=== PATIENT | female | born 1950 | race Caucasian/White ===

== ENCOUNTER → 2018-04-21 11:14 | Outpatient (CLI) | payer OTHER, SELFPAY ==
[2018-04-21 09:18] VITALS: BMI 45.2
--- NOTE | 2018-04-21 11:17 | RAD_ITS ---
HISTORY: left knee pain, recent fallreplacement surgery in 2011 COMPARISON: 11/11/2016 FINDINGS: XR Knee 3 Views: The previously seen fracture of the medial femoral condyle show solid union. No new or acute fracture. Left total knee prosthesis in place which appears in good position. No prosthetic loosening. Small suprapatellar effusion, unchanged. A fabella is present. Atherosclerotic calcifications. RAD/Knee 3 Views IMPRESSION: 1. The previously seen distal left femoral fracture shows solid union. 2. Left total knee prosthesis in place without complication. 3. Small joint effusion, unchanged. at 0547 Reported and signed by: Zeeshan Lucia MD Electronically Signed: Zeeshan Lucia, at 5:45 EST Tel , Service support ,
[2018-04-21 12:17] LABS: Hemoglobin A1c 9.4 % (4.2-6.3)
--- OUTSIDE RECORDS SUMMARY | 2018-06-16 19:49 | XMS RPT_ITS ---
:1950 Author Organization OHIP Care Team Providers Name Role Phone hPoenix Ramoslas Attending Unavailable Brown, Enrique Referring Unavailable Brown, Enrique Attending Unavailable Brown, Enrique Referring Unavailable Brown, Enrique Attending Unavailable Brown, Enrique Referring Unavailable Brown, Enrique Attending Unavailable Brown, Enrique Referring Unavailable Brown, Enrique Primary Care Unavailable PROBLEMS PROBLEMS DATE TYPE CONDITION / CODE ATTENDING STATUS SOURCE 04/21/2018 Unknown M25.569 - Pain in Brown, Enrique Active [place] unspecified knee / Community M25.569(ICD-10) Hospital Repository 04/21/2018 Unknown E11.9 - Type 2 Brown, Enrique Active [place] diabetes mellitus Community without Hospital complications / Repository E11.9(ICD-10) 03/23/2018 Unknown Z23 - Encounter for Brown, Enrique Active [place] immunization / Community Z23(ICD-10) Hospital Repository PROCEDURES PROCEDURES No Procedure Records FoundRESULTS RESULTS INTERNAL MEDICINE Observed: 04/22/2018 Status: F Source: [place] OFFICE VISIT 1:35 PM [facility] [address] [place] [address] [place] [address] OFFICE VISIT Date of Service: 03/23/18 MR#: [id number] Acct: [id number] Name: ANIBAL SAEZ Rep #: [id number] : 1950 Provider: Enrique Ramos DO Age/Sex: 68/F Location: [facility] Status: Signed Intake Intake Visit Reasons: PNEUMONIA SHOT Chief Complaint: For Pneumovax 23 Allergies No Known Allergies Allergy (Verified 03/23/18 09:53) Medications Aspirin [Aspirin, Baby] 81 mg PO QHS 09/07/15 [History Confirmed 03/23/18] Losartan Potassium [Cozaar] 100 mg PO QHS 09/07/15 [History Confirmed 03/23/18] Simvastatin [Zocor] 40 mg PO QHS 09/07/15 [History Confirmed 03/23/18] alogliptin 12.5 mg tablet 25 mg PO DAILY #30 tab 03/16/18 [Rx Confirmed 03/23/18] alprazolam 0.25 mg tablet 0.25 mg PO BID PRN 03/16/18 [History Confirmed 03/23/18] hydrocodone 7.5 mg-acetaminophen 325 mg tablet 1 tab PO BID PRN tab 03/16/18 [History Confirmed 03/23/18] levothyroxine 88 mcg capsule 88 mcg PO DAILY 03/16/18 [History Confirmed 03/23/18] metformin 500 mg tablet 500 mg PO BID 03/16/18 [History Confirmed 03/23/18] ranitidine 150 mg tablet 150 mg PO BID PRN tab 03/16/18 [History Confirmed 03/23/18] exenatide ER 2 mg/0.85 mL subcutaneous auto-injector 2 mg SC Q7D #3.4 ml 03/23/18 [Rx Confirmed 03/23/18] PFSH Medical History Goiter (Acute) History of gout (Acute) Chronic back pain (Chronic) Arthritis (Chronic) Seasonal allergies (Chronic) Diabetes (Chronic) Neuropathy (Chronic) History of kidney stones (Acute) GERD (gastroesophageal reflux disease) (Chronic) Hyperlipemia (Chronic) Hypertension (Chronic) Hypothyroidism (Chronic) Surgical History History of bilateral breast reduction surgery (Acute) History of hip replacement (Acute) History of hysterectomy (Acute) History of orthopedic surgery (Acute) History of partial thyroidectomy (Acute) History of tonsillectomy (Acute) Family History Father Alcoholism Mother Arthritis Osteoporosis Hypertension Social History Smoking Status: Former smoker how long ago did patient quit smokin alcohol intake: current alcohol intake frequency: holidays/special occasions only substance use type: does not use what type of physical activity do you participate in: none HPI HPI Chief Complaint: For Pneumovax 23 Details: ANIBAL SAEZ, is a 68 F who presents to the office today for Immunizations Pneumovax 23 Performing Provider: Enrique Ramos DO Administered by: Jami Espinosa on 03/23/18 10:08 Dose Route Admin Location Lot Number Expiration Date NDC Education Adviser 0.5 mL IM Right Deltoid [id number] 11/05/19 5620-7068-23 [employer]CK [employer] AND D VIS Given Date VIS Publication Date 03/23/18 03/23/18 Eligibility Eligibility Date Assessment AND Plan Orders Orders: Medications New: Discontinued: Pneumovax 23 (pneumococcal 23-jass ps vaccine) Disconti0.5 mL IM ONCE 0.5 mL 0RF NS Z23 nued Reason: Office Medication has been Documented as gi carrie Coding Level of Care Code Off vis,est,level 1 04/22/18 8111 <Electronically signed by Enrique Ramos DO> Date Enrique Ramos DO Cosigner Signature: Date (if applicable) CC: HEMOGLOBIN A1C Collected: 04/21/2018 Status: F Source: [place] 11:19 AM [facility] REPOS[facility] TYPE CODE TESTS RESULT OUT OF RANGE REFERENCE UNITS LAB L501.9985 4.2-6.3 % High HGB A1C 9.4 Performed By: #### L501.9985 #### [facility] [address] [place], [address] KNEE 3 VIEWS Observed: 04/21/2018 Status: F Source: [place] 11:17 AM [facility] RE[facility]IT[facility] Imaging Services [address] [place] [address] Knee 3 Views MR#: [id number] Acct: [id number] Name: ANIBAL SAEZ Rep #: [id number] : 1950 F 68 From: Zeeshan Lucia MD PCP: Enrique Ramos DO Status: REG CLI Study: Knee 3 Views Date of Exam: 04/21/18 Exam# [id number] Ordering Dr: Enrique Ramos DO HISTORY: left knee pain, recent fallreplacement surgery in 2011 COMPARISON: 11/11/2016 FINDINGS: XR Knee 3 Views: The previously seen fracture of the medial femoral condyle show solid union. No new or acute fracture. Left total knee prosthesis in place which appears in good position. No prosthetic loosening. Small suprapatellar effusion, unchanged. A fabella is present. Atherosclerotic calcifications. RAD/Knee 3 Views IMPRESSION: 1. The previously seen distal left femoral fracture shows solid union. 2. Left total knee prosthesis in place without complication. 3. Small joint effusion, unchanged. at 0547 Reported and signed by: Zeeshan Lucia MD Electronically Signed: Zeeshan Lucia, at 5:45 EST Tel , Service support , CC: Enrique Ramos DO Instrument Man: Signed INTERNAL MEDICINE Observed: 04/21/2018 Status: F Source: [place] OFFICE VISIT 9:57 AM [facility] [place] [address] [place] [address] OFFICE VISIT Date of Service: 04/21/18 MR#: [id number] Acct: [id number] Name: ANIBAL SAEZ Rep #: [id number] : 1950 Provider: Enrique Ramos DO Age/Sex: 68/F Location: [facility] Status: Signed Intake Vital Signs04/21/18 Height 5 ft 5 in Intake Visit Reasons: 6 wk FU Chief Complaint: left leg pain after fall Is patient in pain?: Yes (left leg ) Pain scale (1-10): 6 Allergies No Known Allergies Allergy (Verified 03/23/18 09:53) Medications Aspirin [Aspirin, Baby] 81 mg PO QHS 09/07/15 [History Confirmed 03/23/18] Losartan Potassium [Cozaar] 100 mg PO QHS 09/07/15 [History Confirmed 03/23/18] Simvastatin [Zocor] 40 mg PO QHS 09/07/15 [History Confirmed 03/23/18] alogliptin 12.5 mg tablet 25 mg PO DAILY #30 tab 03/16/18 [Rx Confirmed 03/23/18] alprazolam 0.25 mg tablet 0.25 mg PO BID PRN 03/16/18 [History Confirmed 03/23/18] hydrocodone 7.5 mg-acetaminophen 325 mg tablet 1 tab PO BID PRN tab 03/16/18 [History Confirmed 03/23/18] levothyroxine 88 mcg capsule 88 mcg PO DAILY 03/16/18 [History Confirmed 03/23/18] metformin 500 mg tablet 500 mg PO BID 03/16/18 [History Confirmed 03/23/18] ranitidine 150 mg tablet 150 mg PO BID PRN tab 03/16/18 [History Confirmed 03/23/18] exenatide ER 2 mg/0.85 mL subcutaneous auto-injector 2 mg SC Q7D #3.4 ml 03/23/18 [Rx Confirmed 03/23/18] Post menopausal: Yes PFSH Medical History Goiter (Acute) History of gout (Acute) Chronic back pain (Chronic) Arthritis (Chronic) Seasonal allergies (Chronic) Diabetes (Chronic) Neuropathy (Chronic) History of kidney stones (Acute) GERD (gastroesophageal reflux disease) (Chronic) Hyperlipemia (Chronic) Hypertension (Chronic) Hypothyroidism (Chronic) Surgical History History of bilateral breast reduction surgery (Acute) History of hip replacement (Acute) History of hysterectomy (Acute) History of orthopedic surgery (Acute) History of partial thyroidectomy (Acute) History of tonsillectomy (Acute) Family History Father Alcoholism Mother Arthritis Osteoporosis Hypertension Social History Smoking Status: Former smoker how long ago did patient quit smokin alcohol intake: current alcohol intake frequency: holidays/special occasions only substance use type: does not use what type of physical activity do you participate in: none HPI HPI Chief Complaint: left leg pain after fall Details: ANIBAL SAEZ, is a 68 F who presents to the office today for ROS Const Constitutional: No weight change, body ache, chills, fatigue, sleep problems, fever(s), change in appetite, snoring, weakness, frequent falls, headache(s) or excessive sweating Eyes Eyes: No change in vision, eye pain, light sensitivity or blurry vision ENT ENT: No headache(s), abnormal hearing, ear pain, tinnitus, nasal congestion, sore throat or neck pain Resp Respiratory: No snoring, cough, shortness of breath or wheezing Cardio Cardiology: No excessive sweating, chest pain at rest, chest pain with exertion, shortness of breath, dyspnea on exertion, palpitations, orthopnea or lightheadedness Gastro GI: No abdominal pain, change in bowel habits, constipation, diarrhea, vomiting, nausea/dyspepsia or cramping Genitourinary-Female: No burning urination, painful urination, urinary incontinence, urinary frequency, abnormal vaginal bleeding, pelvic pain or other Musc Musculoskeletal: Positive for other (left leg and knee pain since falling last week. ); no neck pain, abnormal walking, joint pain, back pain, limited range of motion, numbness or tingling Skin Skin: No redness, dry skin, itching, lesions, wounds or rash Neuro Neurology: No weakness, frequent falls, headache(s), abnormal hearing, abnormal walking, numbness, tingling, abnormal speech, dizziness or memory loss Psych Psychiatric: No change in appetite, No memory loss, No anxiety, No depression, No Thoughts of harming yourself/Others Endo Endocrine: No fatigue, excessive sweating, cold intolerance, increased thirst/drinking, heat intolerance, flushing or increased hunger Aller/Imm Allergy/Immunologic: No wheezing, itchy eyes, hives or seasonal allergy symptoms Etienne/Lymp Hematologic/Lymphatic: No easy bleeding, easy bruising or enlarged lymph nodes Exam Const General: cooperative Nutritional Appearance: obese centrally obese HENMS Head: normal to inspection Ears: hearing grossly normal bilaterally Nose: external nose normal Face and sinus: normal facial exam Mouth: oral mucosae normal Teeth and gingiva: dentition normal Neck Neck: normal visual inspection Neck mass: No Thyroid: thyroid normal Resp Effort AND Inspection: symmetric chest movement, normal respiratory effort Auscultation: Bilateral: Clear to Auscultation Cardio Rate: regular rate Rhythm: regular rhythm GI Inspection: normal to inspection, large pannus Auscultation: normal bowel sounds Musc Musculoskeletal: Yes joint tenderness (left knee pain, and some eccymosis) Skin General: no rashes or lesions noted Neuro General: normal sensation to monofilament, no focal motor deficits Psych Appearance: grossly normal Mental Status: mental status grossly normal Mood: congruent mood Affect: normal affect Attitude: cooperative Thought Process: normal Assessment AND Plan Problems 1. Diabetes E11.9 2. Mixed hyperlipidemia E78.2 3. Essential hypertension I10 4. Acute pain of left knee M25.562 Plan Patient was seen here for follow-up on her diabetes. Since she has started Bydureon her blood sugars have dropped from close to 300 to the upper 100s a very significant improvement last week she took a fall on her deck her knee is very sore she has had a knee replacement in a year and a half ago she had a fibular plateau fracture according to her so we will re-x-ray that knee and see if there is any damage but I think it is probably knee strain as there is some bruising in the medial aspect of the knee. We will get an A1c to track her sugars but that seems to be much better routine follow-up will be in 3 months. Orders Orders: Plan Detail Follow Up 3 Months Coding Level of Care Code Off vis,est,level 3 Diagnoses Diabetes E11.9 Diabetes mellitus type: type 2 Diabetes mellitus complication status: without complication Mixed hyperlipidemia E78.2 Hyperlipidemia type: mixed hyperlipidemia Essential hypertension I10 Hypertension type: essential hypertension Acute pain of left knee M25.562 Chronicity: acute 04/21/18 0957 <Electronically signed by Enrique Ramos DO> Date Enrique Ramos DO Cosigner Signature: Date (if applicable) CC: INTERNAL MEDICINE Observed: 03/16/2018 Status: F Source: [place] OFFICE VISIT 10:48 AM [facility] [facility] [address] OFFICE VISIT Date of Service: 03/16/18 MR#: [id number] Acct: [id number] Name: ANIBAL SAEZ Rep #: [id number] : 1950 Provider: Enrique Ramos DO Age/Sex: 68/F Location: [facility] Status: Signed Intake Vital Signs03/16/18 Height 5 ft 5 in Intake Visit Reasons: CHECK UP Accompanied by: Is patient in pain?: No Allergies No Known Allergies Allergy (Verified 09/07/15 09:15) Medications Aspirin [Aspirin, Baby] 81 mg PO QHS 09/07/15 [History Confirmed 09/07/15] Losartan Potassium [Cozaar] 100 mg PO QHS 09/07/15 [History Confirmed 03/16/18] Simvastatin [Zocor] 40 mg PO QHS 09/07/15 [History Confirmed 03/16/18] alogliptin 12.5 mg tablet 25 mg PO DAILY #30 tab 03/16/18 [Rx Confirmed 03/16/18] alprazolam 0.25 mg tablet 0.25 mg PO BID PRN 03/16/18 [History Confirmed 03/16/18] hydrocodone 7.5 mg-acetaminophen 325 mg tablet 1 tab PO BID PRN tab 03/16/18 [History Confirmed 03/16/18] levothyroxine 88 mcg capsule 88 mcg PO DAILY 03/16/18 [History Confirmed 03/16/18] metformin 500 mg tablet 500 mg PO BID 03/16/18 [History Confirmed 03/16/18] ranitidine 150 mg tablet 150 mg PO BID PRN tab 03/16/18 [History Confirmed 03/16/18] Post menopausal: Yes PFSH Medical History Goiter (Acute) History of gout (Acute) Chronic back pain (Chronic) Arthritis (Chronic) Seasonal allergies (Chronic) Diabetes (Chronic) Neuropathy (Chronic) History of kidney stones (Acute) GERD (gastroesophageal reflux disease) (Chronic) Hyperlipemia (Chronic) Hypertension (Chronic) Hypothyroidism (Chronic) Surgical History History of bilateral breast reduction surgery (Acute) History of hip replacement (Acute) History of hysterectomy (Acute) History of orthopedic surgery (Acute) History of partial thyroidectomy (Acute) History of tonsillectomy (Acute) Family History Father Alcoholism Mother Arthritis Osteoporosis Hypertension Social History Smoking Status: Former smoker how long ago did patient quit smokin alcohol intake: current alcohol intake frequency: holidays/special occasions only substance use type: does not use what type of physical activity do you participate in: none HPI HPI Details: ANIBAL SAEZ, is a 68 F who presents to the office today for evaluation of her diabetes treatment as she is switching providers from her former physician. She says that her sugars never been under very good control she is tried sulfonylureas they have made her hypoglycemic so she could not tolerate them. She is on the maximum dose of metformin but says she does not feel very well on that when showing me her last several blood sugars are all in the mid 200s. Complicating things of the fact that she gets up around 10:00 has a bagel for breakfast does need again until supper time and follows no diabetic diet nor is she interested in discussing any diet changes with a assembler faucets. Clearly this is a challenge to try and get some kind of control in the absence of her unwillingness to make lifestyle changes. ROS Const Constitutional: No body ache, chills, headache(s), weakness or fever(s) Eyes Eyes: No blurry vision, change in vision, eye pain or discharge ENT ENT: No headache(s), abnormal hearing, ear pain, ear pressure, tinnitus, dizziness/vertigo or balance problems Resp Respiratory: No cough, shortness of breath or wheezing Cardio Cardiology: Positive for palpitations (when she takes her metformin); no chest pain at rest, shortness of breath or dyspnea on exertion Gastro GI: Positive for constipation and heartburn; no abdominal pain or bloating Genitourinary-Female: Positive for urinary incontinence (intermittant) Neuro Neurology: No headache(s), weakness or abnormal hearing Aller/Imm Allergy/Immunologic: No wheezing Exam Const General: cooperative Nutritional Appearance: obese centrally obese [facility] Head: normal to inspection Ears: hearing grossly normal bilaterally Nose: external nose normal Face and sinus: normal facial exam Mouth: oral mucosae normal Teeth and gingiva: dentition normal Neck Neck: normal visual inspection Neck mass: No Thyroid: thyroid normal Resp Effort AND Inspection: symmetric chest movement, normal respiratory effort Auscultation: Bilateral: Clear to Auscultation Cardio Rate: regular rate Rhythm: regular rhythm GI Inspection: normal to inspection, large pannus Auscultation: normal bowel sounds Skin General: no rashes or lesions noted Neuro General: normal sensation to monofilament, no focal motor deficits Psych Appearance: grossly normal Mental Status: mental status grossly normal Mood: congruent mood Affect: normal affect Attitude: cooperative Thought Process: normal Immunizations Fluad 65yr up(PF)45 mcg(15 mcgx3)/0.5 mL intramuscular syringe Performing Provider: Enrique Ramos DO Administered by: Annmarie Uribe on 03/16/18 10:03 Dose Route Admin Location Lot Number Expiration Date NDC Education Adviser 45 mcg IM Right Deltoid [id number] 11/21/18 41149-187-20 [place]US VIS Given Date VIS Publication Date 03/16/18 12/29/14 Eligibility Eligibility Date Assessment AND Plan Problems 1. Diabetes E11.9 2. Hyperlipemia E78.5 3. Hypertension I10 4. Hypothyroidism E03.9 Plan This patient's insurance would cover neither Trulicity or Byetta. So I thought the medicine that would least likely cause hypoglycemia would be alogliptin and that is covered by her insurance. Since dietary changes were not an option she wanted to pursue and exercises rather for him to her nature I hope that this medication will make a difference in her sugars. I asked her to take her sugars twice a day for 10 days call in the results I will get a hemoglobin A1c in 2 months and follow her up in 3 months. Orders Orders: Medications New: Discontinued: Fluad 65yr up(PF)45 mcg(15 mcgx3)/0.5 mL intr45 mcg (0.5 mL) IM ONCE #1 0RF NS Z23 amuscular syringe ( vac 2017 [id number](PF)) Discontinued Reason: Office Medication has been Doc umented as given Plan Detail Follow Up 6 Weeks Coding Level of Care Code Off vis,est,level 3 Diagnoses Diabetes E11.9 Hyperlipemia E78.5 Hypertension I10 Hypothyroidism E03.9 03/16/18 1048 <Electronically signed by Enrique Ramos DO> Date Enrique Ramos DO Cosigner Signature: Date (if applicable) CC: ALLERGIES ALLERGIES DATE TYPE / CODE NAME / CODE REACTION SEVERITY SOURCE 03/23/2018 Drug No Known Unknown [facility] Allergy/4160 Allergies/F00 Hospital 23591(SNOMED [id number](RXNOR Repository CT) M) ENCOUNTERS ENCOUNTERS ADMIT/DISCHARGE ACCOUNT ADMITTING ENCOUNTER LOCATION SOURCE NUMBER CLASS 04/21/2018 [id number] Ambulatory [place] [facility] ing:[facility] Repository 04/21/2018/ [id number] Ambulatory [facility]:B [place] [facility] 0 [facility] Repository 03/23/2018/ [id number] Ambulatory [facility]Building:B [place] [facility] 1 [facility] Repository 03/16/2018/ [id number] Ambulatory BMSBuilding:B [place] 8 9 [facility] Repository PAYERS PAYERS ENCOUNTER GUARANTOR PAYER SUBSCRIBER SOURCE 04/21/2018 ARVIND Smith Primary ANIBAL S [place] [id number] [place] Insurance:MEDICAL HOWELLDOB: [id number] [address]Fbk: Number: Repository [id number] (HP) Date:[id number] [address] [place] [phone]: 04/21/2018 Secondary NOT GIVENUNK [place] Insurance:SELF PAY [facility] Number: Effective Repository Date:2018-04-21 04/21/2018 ARVIND Smith Primary ANIBAL S [place] [id number] [place]ERT[place] Insurance:MEDICAL HOWELLDOB: [facility] [id number] [address]Jle: Number: Repository [id number] (HP) Date:[id number] [address] [place] [phone]: 04/21/2018 Secondary NOT GIVENUNK [place] Insurance:SELF PAY [facility] Number: Effective Repository Date:2018-04-13 03/23/2018 ARVIND Smith Primary ANIBAL S [place] [id number] [place] Insurance:[facility] [id number] [address]Htp: Number: Repository [id number] (HP) Date:[id number] [address] [place] [phone]: 03/23/2018 Secondary NOT GIVENUNK [place] Insurance:SELF PAY [facility] Number: Effective Repository Date:2018-03-23 03/16/2018 ARVIND Smith Primary ANIBAL S [place] [id number] [place] Insurance:MEDICAL HOWELLB: [facility] [id number] [address]Hga: Number: Repository [id number] (HP) Date:[id number] [address] [place] [phone]: 03/16/2018 Secondary NOT GIVENUNK [place] Insurance:SELF PAY [facility] Number: Effective Repository Date:2018-03-11
== END ==
PROVIDERS: Family Provider Family Medicine; PCP Family Medicine; Referring Provider Family Medicine; Visit Provider Family Medicine
DX: E11.9 Type 2 diabetes mellitus without complications (principal); M25.569 Pain in unspecified knee
CPT/HCPCS: 36415; 73562; 83036

== ENCOUNTER 2018-07-04 14:47 | Emergency (ER) | payer MEDICARE, SELFPAY ==
[2018-04-21 09:18] VITALS: BMI 45.2
[2018-07-04 14:48] VITALS: BP 164/103; PULSE 93; RESP 15; TEMP 36.3; O2SAT 97; BMI 44.1
--- NOTE | 2018-07-04 15:01 | ED.VISSUMM ---
- ER Visit Summary Date of Service: 07/04/18 Chief Complaint: Dog bite History of Present Illness: The patient is a 68 F who was bit by her dog just prior to arrival while she was clipping the dog's nails. She was bit in the right hand, both dorsal and palmar sides. No other injuries. Dog is up-to-date with immunizations. Patient is not up-to-date with tetanus immunizations. She does not take blood thinners. Denies associated symptoms like numbness or weakness. Physical Examination: Patient has a 3 cm laceration over her mid dorsal right hand and a 3 cm linear laceration over her palmar right hand towards the ulnar side. Neurovascular intact distally. Good strength and sensation. Test Results: None indicated Emergency Department Course and Treatment: Tetanus updated. Wounds anesthetized and cleaned. Closed loosely with simple interrupted sutures. Patient was placed on antibiotics prophylaxis. Risks of infection were discussed. Patient will follow-up with primary care. Treatment Plan: Augmentin Disposition: Discharge Impression: 1. Dog bite right hand 2. Simple lacerations, 6 cm total length This note was generated with [employer] dictation software. It may contain incorrect words, spelling, and punctuation that were not noted in review of the chart prior to signing ED Disposition - Plan for ED Patient: Referrals: Enrique Ramos DO [Primary Care Provider] -
--- NOTE | 2018-07-04 15:04 | ED.DEP ---
ED Disposition - Plan for ED Patient: Instructions: ED Bite Dog Prescriptions: Amox/Clavulanate Tablet [Augmentin Tablet] 875 mg PO Q12H #14 tab Referrals: Enrique Ramos DO [Primary Care Provider] -
[2018-07-04] MEDS: Diphth,Pertuss(Acell),Tet Vac 0.5 ML Vial IM (15:51)
[2018-07-04] MEDS: Amox/Clavulanate 875 MG Tablet PO (15:52)
[2018-07-04 16:05] VITALS: BP 143/79; PULSE 86; RESP 17
== END 2018-07-04 16:06 | disposition home or self-care (01) ==
LOC: ED 15:12
PROVIDERS: Emergency Provider Emergency Medicine; Family Provider Family Medicine; PCP Family Medicine
DX: S60.571A Other superficial bite of hand of right hand, initial encounter (principal); W54.0XXA Bitten by dog, initial encounter; Y93.9 Activity, unspecified; Y92.9 Unspecified place or not applicable; E11.9 Type 2 diabetes mellitus without complications; I10 Essential (primary) hypertension; E78.00 Pure hypercholesterolemia, unspecified; M10.9 Gout, unspecified; Z79.82 Long term (current) use of aspirin; Z79.84 Long term (current) use of oral hypoglycemic drugs; Z79.899 Other long term (current) drug therapy; Z87.891 Personal history of nicotine dependence
CPT/HCPCS: 12002; 90715; 99285

== ENCOUNTER → 2018-08-11 11:03 | Outpatient (CLI) | payer OTHER, SELFPAY ==
[2018-08-11 10:40] VITALS: BMI 44.1
[2018-08-11 13:29] LABS: ALB/GLOB Ratio 0.8 RATIO (0.9-2.4); AST(SGOT) 29 U/L (15-37); Alanine Aminotransfer ALT/SGPT 32 U/L (13-56); Albumin, Serum 3.5 g/dL (3.2-5.0); Alkaline Phosphatase 122 U/L (45-117); Anion Gap 4 (5-15); BUN 16 mg/dL (7-18); BUN/Creat Ratio 13.8 RATIO (10-20); Calcium,Total 9.7 mg/dL (8.5-10.1); Chloride 110 mmol/L (98-107); Cholesterol 150 mg/dL (200); Creatinine, Serum 1.16 mg/dL (0.55-1.02); EST Glomerular Filtration Rate 50 mL/min (>60); Est Glom Filt Rate - Afr Amer 60 mL/min (>60); Globulin 4.3 g/dL (2.2-4.2); Glucose 119 mg/dL (74-106); High Density Lipoprotein 32 mg/dL; Potassium 4.7 mmol/L (3.5-5.1); Protein, Total 7.8 g/dL (6.4-8.2); Sodium Level 139 mmol/L (136-145); Thyroid Stim Hormone (TSH) 4.55 uIU/mL (0.358-3.74); Triglycerides 234 mg/dL; Very Low Density Lipoprotein 47 mg/dL (5-40)
== END ==
PROVIDERS: Family Provider Family Medicine; PCP Family Medicine; Visit Provider Family Medicine
DX: I10 Essential (primary) hypertension (principal); E78.5 Hyperlipidemia, unspecified; E03.9 Hypothyroidism, unspecified
CPT/HCPCS: 36415; 80053; 80061; 84443

== ENCOUNTER 2018-11-13 01:45 | Emergency (ER) | payer MEDICARE, SELFPAY ==
[2018-11-10 10:13] VITALS: BMI 42.9
[2018-11-13 01:48] VITALS: BP 161/103; PULSE 92; RESP 24; TEMP 37.1; O2SAT 96; BMI 43.4
--- NOTE | 2018-11-13 02:13 | CT_ITS ---
STUDY: CT ABDOMEN AND PELVIS WITHOUT CONTRAST REASON FOR EXAM: Female, 68 years old. Flank pain RADIATION DOSAGE (If Supplied By Facility): CTDIvol = ( 33.24 ) mGy, DLP = ( 1627.60 ) mGycm TECHNIQUE: Transaxial images were obtained from the dome of the diaphragm to the symphysis pubis without oral contrast, and without intravenous contrast. Sagittal and coronal images were reconstructed. Individualized dose optimization techniques were used for this CT. COMPARISON: None. FINDINGS: The visualized lung bases are unremarkable. The visualized portions of the heart are within normal limits. Normal liver. Normal gallbladder and extrahepatic biliary system. Normal spleen. Normal pancreas. There are small, circumscribed, smooth, low attenuation bilateral adrenal masses, consistent with adenomata. Multiple stones are seen in the right kidney the largest measures 15 mm there is no hydronephrosis. Normal left kidney. Normal visualized stomach. Normal small intestine. There are multiple colonic diverticula consistent with diverticulosis. The appendix is visualized and appears normal. Normal abdominal aorta. Normal inferior vena cava. Normal retroperitoneum. Normal urinary bladder. Normal abdominal wall. There are diffuse degenerative changes of the visualized lumbar spine. Bilateral hip arthroplasties are noted. CT/Abdomen/Pelvis without Cont IMPRESSION: Multiple stones are seen in the right kidney the largest measures 15 mm there is no hydronephrosis. Electronically Signed: Mani Neri, at 4:08 EDT Tel , Service support ,
[2018-11-13 02:20] LABS: Mucous, Urine 0 SEEN /hpf (<or=2+)
[2018-11-13 02:22] LABS: Absolute Lymphocyte Count 1.95 X10^3/ul (0.83-4.51); Absolute Neutrophil Count 10.2 X10^3/uL (2.0-7.7); Basophil# 0.02 X10^3/uL; Basophil% 0.1 % (0-1); Eosinophil# 0.36 X10^3/uL; Eosinophils% 2.7 % (0-5); Hematocrit 39.6 % (37-47); Hemoglobin 12.9 g/dl (12.0-15.0); Lymphocyte # 1.95 X10^3/ul (4.0); Lymphocyte % 14.6 % (19-41); Mean Corp Hgb Conc 32.6 g/gl (32-36); Mean Corpuscular Hgb 28.5 pg (27.0-32.0); Mean Corpuscular Volume 87.4 fL (81-99); Mean Platelet Vol. 11.3 fl (6.2-12.0); Monocyte# 0.81 X10^3/uL; Monocyte% 6.1 % (0-10); Neutrophil # 10.19 X10^3/uL (2.7-7.7); Neutrophil % 76.2 % (47-70); Platelet Count 330 K/mm3 (150-450); RBC Distribution Width CV 15.1 % (11.6-14.6); RBC Distribution Width SD 47.7 fl (35.1-43.9); Red Blood Count 4.53 M/mm3 (4.2-5.4); White Blood Count 13.4 K/mm3 (4.4-11.0)
[2018-11-13] MEDS: Morphine 4 MG/ML Syringe IV (02:22)
[2018-11-13] MEDS: Ondansetron 4 MG/2 ML Vial IV (02:22)
[2018-11-13] MEDS: 0.9% Normal Saline 1,000 ML 1000 ML IV (02:22)
[2018-11-13 02:23] LABS: Color, Urine Yellow (Yellow); Glucose, Dipstick Normal (Normal); Ketone-Dipstick Negative (Negative); Leukocyte Esterase-Dipstick 500 /ul (Negative); Nitrite-Dipstick Positive (Negative); Occult Blood-Urine 250 /ul (Negative); POSITIVE COUNT NO; POSITIVE DIFFERENTIAL NO; POSITIVE MORPHOLOGY NO; Protein-Dipstick 30 mg/dl (Negative); Urine Bilirubin Dipstick Negative (Negative); Urine Clarity Cloudy (Clear); Urine Urobilinogen Normal (Normal)
[2018-11-13 02:30] LABS: Bacteria 3+ /hpf (None Seen)
[2018-11-13 02:31] LABS: Red Blood Cells-Urine 25-50 SEEN /hpf (0-5); Squamous Epithelial Cells - UA 5-10 SEEN /hpf (5-10); White Blood Cells 50-100 SEEN /hpf (0-5)
[2018-11-13 02:38] LABS: Anion Gap 6 (5-15); BUN 22 mg/dL (7-18); BUN/Creat Ratio 19.8 RATIO (10-20); Calcium,Total 10.2 mg/dL (8.5-10.1); Chloride 108 mmol/L (98-107); Creatinine, Serum 1.11 mg/dL (0.55-1.02); EST Glomerular Filtration Rate 52 mL/min (>60); Est Glom Filt Rate - Afr Amer 63 mL/min (>60); Estimated Creatinine Clearance 44.86 ml/min; Glucose 151 mg/dL (74-106); Potassium 4.3 mmol/L (3.5-5.1); Sodium Level 139 mmol/L (136-145)
[2018-11-13] MEDS: Ceftriaxone 1 GM/50 ML BAG IV (03:29)
[2018-11-13 03:36] LABS: Lactic Acid 1.4 mmol/L (0.4-2.0)
[2018-11-13 04:10] VITALS: BP 147/77; PULSE 89; RESP 18; O2SAT 95
--- NOTE | 2018-11-13 04:34 | ED.VISSUMM ---
- ER Visit Summary Date of Service: 11/13/18 Chief Complaint: Flank pain History of Present Illness: The patient is a 68 F who presents with flank pain. This began yesterday afternoon. She complains of severe aching left flank pain. This is worse with movement. She initially thought it was related to her back and has been trying icy hot and heating pad without relief. No fevers chest pain shortness of breath nausea or vomiting. She does report urinary urgency. She has a history of prior kidney stones. Physical Examination: Blood pressure 161/103 vitals otherwise unremarkable. Moist mucous membranes Heart regular rate and rhythm Lungs are clear Abdomen soft she is got mild diffuse abdominal tenderness without guarding without rebound she is nondistended Left CVA tenderness Test Results: Labs are notable for white count of 13.4, BUN 22, creatinine 1.11. Lactic acid is normal. Blood and urine cultures were sent. Urinalysis shows 500 leukocyte esterase, positive nitrates, 50-100 WBCs with 3+ bacteria. CT the flank shows multiple right renal calculi no ureteral calculi Emergency Department Course and Treatment: Patient was given IV fluids morphine Zofran. Initial concern was for ureteral lithiasis. While she does have right nephrolithiasis she has no ureterolithiasis at this time and no calculi on the left. I do not believe the renal calculi are related to her current presentation. However she does have a evidence of urinary tract infection, with leukocytosis and flank pain I do believe this represents pyelonephritis. However she is not febrile or tachycardic. She does not have vomiting. She is tolerating p.o. I believe she is a good candidate for outpatient treatment. However she was given clear instructions of signs and symptoms to monitor for and to return for any new or worsening symptoms, fever, vomiting. Patient agreeable to this plan. She was given a prescription for Bactrim and [place] for pain and was discharged. Treatment Plan: [] Disposition: Discharge Impression: Pyelonephritis This note was generated with Valen[employer] dictation software. It may contain incorrect words, spelling, and punctuation that were not noted in review of the chart prior to signing ED Disposition - Plan for ED Patient: Referrals: Enrique Ramos DO [Primary Care Provider] -
--- NOTE | 2018-11-13 04:37 | ED.DEP ---
ED Disposition - Plan for ED Patient: Instructions: PYELONEPHRITIS, Female (Adult) Prescriptions: Smz/Tmp Ds [Bactrim Ds] 1 tab PO BID #20 tab Prescription Printed Hydrocodone Bitart/Apap 5-325 [[place] 5MG-325MG] 1 tab PO Q6H PRN PRN 3 Days #10 tab PRN Reason: Pain Prescription Printed Referrals: Enrique Ramos DO [Primary Care Provider] -
[2018-11-13] MEDS: HYDROcodone Bitartrate/Apap 5/325 Tablet PO (04:40)
[2018-11-13 04:47] VITALS: BP 139/69; PULSE 86; RESP 18; O2SAT 95
--- NOTE | 2018-11-13 05:14 | ED.RN ---
PATIENT WAITING AT BEDSIDE FOR MEDICATIONS.
== END 2018-11-13 05:15 | disposition home or self-care (01) ==
PROVIDERS: Emergency Provider Emergency Medicine; Family Provider Family Medicine; PCP Family Medicine
DX: N12 Tubulo-interstitial nephritis, not specified as acute or chronic (principal); E11.9 Type 2 diabetes mellitus without complications; I10 Essential (primary) hypertension; E78.00 Pure hypercholesterolemia, unspecified; Z87.442 Personal history of urinary calculi; Z79.84 Long term (current) use of oral hypoglycemic drugs; Z79.899 Other long term (current) drug therapy
CPT/HCPCS: 74176; 80048; 81001; 83605; 85025; 87040; 87077; 87086; 87088; 87186; 96361; 96365; 96375; 99284; J7030; A4216; J2405

== ENCOUNTER → 2018-11-24 | Outpatient (CLI) | payer MEDICARE, SELFPAY ==
[2018-11-13 01:48] VITALS: BMI 43.4
[2018-11-24 10:11] LABS: Mucous, Urine 0 SEEN /hpf (<or=2+)
[2018-11-24 12:25] LABS: Color, Urine Yellow (Yellow); Glucose, Dipstick Normal (Normal); Ketone-Dipstick Negative (Negative); Leukocyte Esterase-Dipstick 100 /ul (Negative); Nitrite-Dipstick Negative (Negative); Occult Blood-Urine 10 /ul (Negative); Protein-Dipstick 15 mg/dl (Negative); Specific Gravity, Urine 1.015 (1.002-1.030); Urine Clarity Sl. Cloudy (Clear); Urine Urobilinogen Normal (Normal)
[2018-11-24 12:28] LABS: Urine Bilirubin Dipstick 1 mg/dL (Negative)
[2018-11-24 12:32] LABS: Red Blood Cells-Urine 0-5 SEEN /hpf (0-5); Squamous Epithelial Cells - UA 25-50 SEEN /hpf (5-10); White Blood Cells 5-10 SEEN /hpf (0-5)
[2018-11-24 12:33] LABS: Bacteria 2+ /hpf (None Seen)
== END | disposition home or self-care (01) ==
LOC: BIMLAB 10:09
PROVIDERS: Family Provider Family Medicine; PCP Family Medicine; Visit Provider Family Medicine
DX: N39.0 Urinary tract infection, site not specified (principal)
CPT/HCPCS: 81001; 87086

== ENCOUNTER → 2018-12-24 | Outpatient (CLI) | payer MEDICARE, SELFPAY ==
[2018-12-24 09:10] VITALS: BMI 42.0
[2018-12-24 09:39] LABS: Bacteria 0 SEEN /hpf (None Seen); Mucous, Urine 0 SEEN /hpf (<or=2+); Red Blood Cells-Urine 0 SEEN /hpf (0-5); White Blood Cells 0 SEEN /hpf (0-5)
[2018-12-24 12:29] LABS: Color, Urine Yellow (Yellow); Glucose, Dipstick Normal (Normal); Ketone-Dipstick Negative (Negative); Leukocyte Esterase-Dipstick 25 /ul (Negative); Nitrite-Dipstick Negative (Negative); Occult Blood-Urine Negative /ul (Negative); Protein-Dipstick Negative (Negative); Specific Gravity, Urine 1.015 (1.002-1.030); Urine Bilirubin Dipstick Negative (Negative); Urine Clarity Sl. Cloudy (Clear); Urine Urobilinogen Normal (Normal)
[2018-12-24 12:36] LABS: Squamous Epithelial Cells - UA 10-25 SEEN /hpf (5-10)
== END | disposition home or self-care (01) ==
LOC: LABSPEC 09:37
PROVIDERS: Family Provider Family Medicine; PCP Family Medicine; Visit Provider Nurse Practitioner Family
DX: R10.9 Unspecified abdominal pain (principal)
CPT/HCPCS: 81001

== ENCOUNTER → 2019-08-03 09:54 | Outpatient (CLI) | payer MEDICARE, SELFPAY ==
[2019-08-03 09:22] VITALS: BMI 42.0
[2019-08-03 12:46] LABS: ALB/GLOB Ratio 0.9 RATIO (0.9-2.4); AST(SGOT) 16 U/L (15-37); Alanine Aminotransfer ALT/SGPT 21 U/L (13-56); Albumin, Serum 3.4 g/dL (3.2-5.0); Alkaline Phosphatase 104 U/L (45-117); Anion Gap 5 (5-15); BUN 17 mg/dL (7-18); BUN/Creat Ratio 13.1 RATIO (10-20); Calcium,Total 10.1 mg/dL (8.5-10.1); Chloride 115 mmol/L (98-107); Cholesterol 133 mg/dL (200); EST Glomerular Filtration Rate 43 mL/min (>60); Est Glom Filt Rate - Afr Amer 53 mL/min (>60); Globulin 3.9 g/dL (2.2-4.2); Glucose 111 mg/dL (74-106); High Density Lipoprotein 35 mg/dL; Potassium 4.8 mmol/L (3.5-5.1); Protein, Total 7.3 g/dL (6.4-8.2); Sodium Level 143 mmol/L (136-145); Thyroid Stim Hormone (TSH) 1.26 uIU/mL (0.358-3.74); Triglycerides 173 mg/dL; Very Low Density Lipoprotein 35 mg/dL (5-40)
[2019-08-03 13:09] LABS: Microalbumin,Random Urine 21.7 mg/L (NO RANGE EST.); Microalbumin:Creatinine Ratio 19.2 mg/g CRE (<30 mg/g CRE)
== END ==
PROVIDERS: PCP Family Medicine; Referring Provider Family Medicine; Visit Provider Family Medicine
DX: I10 Essential (primary) hypertension (principal); E78.2 Mixed hyperlipidemia; E11.9 Type 2 diabetes mellitus without complications
CPT/HCPCS: 36415; 80053; 80061; 82043; 82570; 84443

== ENCOUNTER → 2020-02-01 11:48 | Outpatient (CLI) | payer MEDICARE, SELFPAY ==
[2020-02-01 10:49] VITALS: BMI 42.0
[2020-02-01 11:51] LABS: Mucous, Urine 0 SEEN /hpf (<or=2+); Red Blood Cells-Urine 0 SEEN /hpf (0-5); White Blood Cells 0 SEEN /hpf (0-5)
[2020-02-01 15:22] LABS: Glucose, Dipstick Normal (Normal); Ketone-Dipstick Negative (Negative); Leukocyte Esterase-Dipstick Negative /ul (Negative); Nitrite-Dipstick Negative (Negative); Occult Blood-Urine Negative /ul (Negative); Protein-Dipstick 15 mg/dl (Negative); Specific Gravity, Urine 1.015 (1.002-1.030); Urine Bilirubin Dipstick Negative (Negative); Urine Urobilinogen Normal (Normal)
[2020-02-01 15:25] LABS: Color, Urine Yellow (Yellow); Urine Clarity Clear (Clear)
[2020-02-01 15:38] LABS: Bacteria 1+ /hpf (None Seen); Squamous Epithelial Cells - UA 0-5 SEEN /hpf (5-10)
== END ==
PROVIDERS: PCP Family Medicine; Referring Provider Family Medicine; Visit Provider Family Medicine
DX: N39.3 Stress incontinence (female) (male) (principal)
CPT/HCPCS: 81001

== ENCOUNTER 2020-02-10 00:30 | Observation (INO) | payer MEDICARE, SELFPAY ==
[2020-02-01 10:49] VITALS: BMI 42.0
[2020-02-10] VITALS (10 sets, daily range): BP systolic 132–184; BP diastolic 67–94; PULSE 72–104; RESP 18–19; TEMP 36.5–37.1; O2SAT 95–99; BMI 45.9; BMI 44.6
--- NOTE | 2020-02-10 00:45 | EKG12_ITS ---
Test Reason : CP ADMIT Blood Pressure : / mmHG Vent. Rate : 076 BPM Atrial Rate : 076 BPM P-R Int : 124 ms QRS Dur : 134 ms QT Int : 394 ms P-R-T Axes : 043 040 012 degrees QTc Int : 443 ms Normal sinus rhythm Right bundle branch block Abnormal ECG No previous ECGs available Confirmed by ANURADHA STONE, REGGIE ([id number]), editorial cartoonist PAOLA JAFFE ([id number]) on 02/17/2020 1:09:50 PM Referred By: DR SILVESTRE Confirmed By:REGGIE LING MD
[2020-02-10] MEDS: Aspirin 81 MG TAB.CHEW 324 MG PO (01:03)
[2020-02-10 01:14] LABS: Absolute Lymphocyte Count 2.28 X10^3/uL (0.83-4.51); Absolute Neutrophil Count 7.5 X10^3/uL (2.0-7.7); Basophil# 0.04 X10^3/uL; Basophil% 0.4 % (0-1); Eosinophil# 0.31 X10^3/uL; Eosinophils% 2.8 % (0-5); Hematocrit 37.7 % (37-47); Hemoglobin 12.1 g/dL (12.0-15.0); Lymphocyte # 2.28 X10^3/ul (4.0); Lymphocyte % 20.5 % (19-41); Mean Corp Hgb Conc 32.1 g/dL (32-36); Mean Corpuscular Hgb 28.7 pg (27.0-32.0); Mean Corpuscular Volume 89.3 fL (81-99); Mean Platelet Vol. 11.1 fl (6.2-12.0); Monocyte# 0.94 X10^3/uL; Monocyte% 8.5 % (0-10); NRBC Flagged by Analyzer 0 % (0-5); Neutrophil # 7.49 X10^3/uL (2.7-7.7); Neutrophil % 67.4 % (47-70); POSITIVE COUNT YES; Platelet Count 275 K/mm3 (150-450); RBC Distribution Width CV 14.6 % (11.6-14.6); RBC Distribution Width SD 47.1 fl (35.1-43.9); Red Blood Count 4.22 M/mm3 (4.2-5.4); White Blood Count 11.1 K/mm3 (4.4-11.0)
--- NOTE | 2020-02-10 01:14 | RAD_ITS ---
HISTORY: patient felt like chest was tight muscle spasm, went away after a couple minutes, nausea with it EXAMINATION/TECHNIQUE: XR Chest 1 View: Portable upright COMPARISON: None FINDINGS: Cardiac telemetry leads in place. The heart is upper normal in size. No focal infiltrate or vascular congestion or pleural effusion. No pneumothorax. Hypertrophic degenerative changes of the dorsal spine. RAD/Chest 1 View (Portable) IMPRESSION: No acute cardiopulmonary disease. at 0333 Reported and signed by: Zeeshan Lucia MD Electronically Signed: Zeeshan Lucia, at 3:32 EDT Tel , Service support ,
--- NOTE | 2020-02-10 01:21 | ED.RN ---
no old ekgs on file
[2020-02-10 01:26] LABS: Anion Gap 8 (5-15); BUN 18 mg/dL (7-18); BUN/Creat Ratio 12.9 RATIO (10-20); Calcium,Total 10.1 mg/dL (8.5-10.1); Chloride 112 mmol/L (98-107); EST Glomerular Filtration Rate 40 mL/min (>60); Est Glom Filt Rate - Afr Amer 48 mL/min (>60); Estimated Creatinine Clearance 34.61 ml/min; Glucose 135 mg/dL (74-106); Potassium 4.2 mmol/L (3.5-5.1); Sodium Level 145 mmol/L (136-145)
[2020-02-10 01:38] LABS: Differential Indicated SCAN CRITERIA MET
[2020-02-10 01:39] LABS: Differential Comment SCANNED
--- NOTE | 2020-02-10 01:40 | HP.PCM_ITS ---
Problem List (1) Chest pain Status: Acute (2) Stress incontinence Status: Chronic (3) History of gout Status: Chronic (4) Chronic back pain Status: Chronic (5) Arthritis Status: Chronic (6) Seasonal allergies Status: Chronic (7) Diabetes Status: Chronic Qualifiers: Diabetes mellitus type: type 2 Diabetes mellitus complication status: without complication (8) Neuropathy Status: Chronic (9) History of kidney stones Status: Chronic (10) GERD (gastroesophageal reflux disease) Status: Chronic (11) Hyperlipemia Status: Chronic Qualifiers: Hyperlipidemia type: mixed hyperlipidemia Qualified Code(s): E78.2 - Mixed hyperlipidemia (12) Hypertension Status: Chronic Qualifiers: Hypertension type: essential hypertension Qualified Code(s): I10 - Essential (primary) hypertension (13) Hypothyroidism Status: Chronic History of Present Illness Date of Admission: 02/10/20 Chief Complaint: CHEST PAIN The patient is a 70 year old F with a significant for morbid obesity; anxiety disorder; hypothyroidism; former smoker and hyperlipidemia who presents to the emergency department with substernal episodic chest pain that started about an hour before presentation. Over the past year every 1 to 2 weeks patient has chest pain. She described chest pain as fluttering and spasms of her chest. On the day of presentation this chest pain lasted for about 5 minutes which is longer than usual. Home blood pressure while her chest pain was receding was 210/161. Because the chest pain was longer than usual because blood pressure was elevated she came to the emergency department. The chest pain started after watching a football game. The chest pain is nonradiating. Associated with her symptoms is nausea; diaphoresis; feeling of hot flush; and presyncope. Other presentation she not taken her nighttime medications including her blood pressure medication because she takes her nighttime medication just at the time of sleep. She checked in at emergency department after midnight. She report that although recently her blood pressure was elevated at the PCPs office upon returning home and checking her blood pressure on her home blood pressure machine her blood pressure was not that elevated. Past Medical History Past Medical History (Chronic Problems): Chronic Problems (Last Reviewed 02/10/20 @ 03:[address] Kishore Mason MD) Stress incontinence (Chronic) History of gout (Chronic) Chronic back pain (Chronic) Arthritis (Chronic) Seasonal allergies (Chronic) Diabetes (Chronic) Neuropathy (Chronic) History of kidney stones (Chronic) GERD (gastroesophageal reflux disease) (Chronic) Hyperlipemia (Chronic) Hypertension (Chronic) Hypothyroidism (Chronic) Medical History: Medical History (Last Reviewed 02/10/20 @ 03:[address] Kishore Mason MD) Goiter (Inactive) E04.9 History of gout (Chronic) Z87.39 Chronic back pain (Chronic) M54.9, G89.29 Arthritis (Chronic) M19.90 Seasonal allergies (Chronic) J30.2 Diabetes (Chronic) E11.9 Neuropathy (Chronic) G62.9 History of kidney stones (Chronic) Z87.442 GERD (gastroesophageal reflux disease) (Chronic) K21.9 Hyperlipemia (Chronic) E78.5 Hypertension (Chronic) I10 Hypothyroidism (Chronic) E03.9 Allergies No Known Allergies Allergy (Verified 02/10/20 00:32) Home Medications: Ambulatory Orders Medication Instructions Recorded Aspirin [Aspirin, Baby] 81 mg PO QHS 09/07/15 alprazolam 0.25 mg tablet 0.25 mg PO BID PRN 03/16/18 colchicine 0.6 mg tablet 0.6 mg PO DAILY PRN tab 05/04/19 metformin 500 mg tablet 500 mg PO BID #180 tab 05/04/19 exenatide microspheres 2 mg/0.85 2 mg SC Q7D #10.2 ml 06/01/19 mL subcutaneous auto-injector levothyroxine 100 mcg tablet 100 mcg PO DAILY #90 tab 10/23/19 famotidine 40 mg tablet 40 mg PO DAILY #90 tab 11/02/19 losartan 100 mg tablet 100 mg PO QHS #90 tab 11/02/19 simvastatin 40 mg tablet 40 mg PO QHS #90 tab 11/02/19 tolterodine 4 mg capsule,extended 4 mg PO DAILY #30 cap 02/01/20 release 24 hr Surgical History: Surgical History (Last Reviewed 02/10/20 @ 03:[address] Kishore Mason MD) History of bilateral breast reduction surgery Z98.890 History of hip replacement Z96.649 01, 03 History of hysterectomy Z90.710 History of orthopedic surgery Z98.890 bilateral knee replacement in 2011, previous arthoscopies in and . History of partial thyroidectomy Z98.890 History of tonsillectomy Z90.89 as an adult due to trouble with snoring. Smoking Status: Former smoker Tobacco Use: Cigarettes - *Family History Maternal Family History: Family History (Last Reviewed 02/10/20 @ 03:[address] Kishore Mason MD) Father Alcoholism Mother Arthritis Osteoporosis Hypertension Review of Systems Constitutional: Denies: Chills, Fever, Weight Change HEENT: Denies: Head Aches, Sinus Congestion, Sinus Drainage Cardiovascular: Reports: Chest Pain. Denies: Palpitations Respiratory: Denies: Cough, Shortness of breath at rest, Sputum production Gastrointestinal: Reports: Nausea. Denies: Abdominal Pain, Vomiting Genitourinary: Denies: Dysuria Musculoskeletal: Denies: Joint Pain, Joint Tenderness Skin: Denies: Rash, Wounds Neurological: Denies: Numbness, Tingling, Focal weakness Psychiatric: Denies: Anxiety, Depression, Homicidal Ideations, Suicidal Ideations Hematologic/ Lymphatic: Denies: Easy Bruising, Easy Bleeding VTE Information - Inpt Only VTE Present on Admission: No VTE Mechan Device Prophylaxis: SCD's VTE Pharm Prophylaxis ordered?: No Patient Problems: Active and Suspected Problems (Last Reviewed 02/10/20 @ 03:[address] Kishore Mason MD) Chest pain (Acute) - Physical Exam Vitals/I&O's: Vital Signs Temp Pulse Resp BP Pulse Ox 97.8 F 104 H 18 180/94 H 95 02/10/20 00:32 02/10/20 00:32 02/10/20 00:32 02/10/20 00:32 02/10/20 00:54 Oxygen Delivery Method Room Air Weight: 125.191 kg Body Mass Index (BMI) 45.9 General: Alert, Oriented x3, Cooperative HEENT: Atraumatic, PERRLA, EOMI, Normocephalic Neck: Supple, No JVD, Negative Carotid Bruits Lungs: Clear to auscultation, Normal air movement, No rhonchi, No wheeze, No rales Cardiovascular: Regular rate, Regular Rhythm, Normal S1, Normal S2, No murmurs Abdomen: Bowel Sounds Present, Soft, Non Tender Extremities: No edema, Capillary Refill Less than 3 Seconds Skin: No rashes, No breakdown Musculoskeletal: No Tenderness to Palpation of Joints or Extremities Neurological: Cranial nerves II-XII grossly intact Psych/Mental Status: Normal Affect, Appropriate Laboratory Results 02/10/20 01:02: WBC 11.1 H, RBC 4.22, Hgb 12.1, Hct 37.7, MCV 89.3, MCH 28.7, MCHC 32.1, RDW Std Deviation 47.1 H, RDW Coeff of Jenni 14.6, Plt Count 275, MPV 11.1, Immature Gran % (Auto) 0.400, Neut % (Auto) 67.4, Lymph % (Auto) 20.5, M primo % (Auto) 8.5, Eos % (Auto) 2.8, Baso % (Auto) 0.4, Absolute Neuts (auto) 7.5, Absolute Lymphs (auto) 2.28, Nucleated RBC % 0, Differential Comment SCANNED 02/10/20 01:02: Sodium 145, Potassium 4.2, Chloride 112 H, Carbon Dioxide 25.0, Anion Gap 8, BUN 18, Creatinine 1.40 H, Estim Creat Clear Calc 34.61, Est GFR (MDRD) Af Amer 48 L, Est GFR (MDRD) Non-Af 40 L, BUN/Creatinine Ratio 12.9, Glucose 135 H, Calcium 10.1, Troponin I < 0.015 Current Medications Sodium Chloride () 1,000 mls @ 150 mls/hr IV .Q6H40M MARIANN Assessment/Plan All Active Problems (Last Reviewed 02/10/20 @ 03:[address] Kishore Mason MD) Chest pain (Acute) The patient is a 70 year old F with a significant for morbid obesity; anxiety disorder; hypothyroidism; and a former smoker and hyperlipidemia who presents to the emergency department with substernal episodic chest pain that started about an hour before presentation. Chest pain Place on a monitored bed at PCU Actual CXR image was independently visualized. No acute cardiopulmonary process was noted. Actual EKG tracing was independently visualized. EKG tracing showed right bundle branch block. Review of old records shows no previous EKG to compare with. Received aspirin 325 mg p.o. at emergency department. ASA 81 mg p.o. daily ordered Morphine as needed for pain ordered Review of old records shows that lipid panel was done on 08/03/2019. Lipid panel was unremarkable except HDL cholesterol was 35; low Statin: On home simvastatin; continued. Serial cardiac enzymes ordered Stat EKG as needed for chest pain Chemical stress test in the AM if the cardiac enzymes are negative. Patient has a history of bilateral hip surgery and bilateral knee surgery and is not a candidate for treadmill stress test. Hypertensive emergency At home blood pressure was 210/161. Blood pressure at emergency department was 180/94. Home blood pressure medications to be started as soon as possible. Unclear whether patient takes her blood pressure medication at fixed times. Trend blood pressure and adjust blood pressure medications as necessary. 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 Diabetes mellitus with hyperglycemia Elevated blood glucose on presentation On home exenatide. On home metformin. Hold metformin in the hospital setting. Accu-Chek every 6 hours while n.p.o. Correction scale insulin ordered. Anxiety disorder: Xanax as needed continued. DVT prophylaxis SCD ordered. OBSV E&M: [id number] Initial observation care L3
--- NOTE | 2020-02-10 01:50 | ED.DCSUM_ITS ---
- ER Visit Summary Date of Service: 02/10/20 Chief Complaint: [Chest pain] History of Present Illness: The patient is a 70 F [presents the emergency department with discomfort in her chest that started this evening while she was watching the [employer] game. Patient states that she felt diaphoretic and shaky a nd felt like she was having spasms in her left chest. Patient felt like maybe her heart was quivering. She described nausea. She felt mildly short of breath. Patient checked her blood pressure and it was 210/161. Patient states she has been having similar episodes but none that have lasted as long as they did tonight. Her episode tonight lasted about 5 minutes or so. Patient denied any radiation of the discomfort. She denies recent travel or surgery. No history of anxiety. Patient's last stress test was many years ago and she is never had a heart cath. Patient has history of diabetes, hypertension, and high cholesterol. No history of PE or DVT. She denies recent illness. Patient symptoms currently resolved.] Physical Examination: [HEENT-PERRLA, EOMI. Cranial nerves II through XII grossly intact. TMs clear. Mucous membranes moist. No adenopathy. Cardiovascular-regular rate and rhythm without murmur or ectopy Lungs-clear to auscultation, chest wall stable without crepitus or subcu emphysema Abdomen-normoactive bowel sounds, soft, nontender, no rebound or rigidity, no peritoneal signs. Extremities-intact ?4, normal range of motion, normal pulses, atraumatic] Test Results: [EKG obtained on arrival showed a sinus rhythm with a ventricular rate of 97 bpm with a right bundle branch block. [facility] CBC with differential showed a white count of 11.1, hemoglobin 12, hematocrit 38, placed to 75. Chemistries unremarkable. Troponin less than 0.015. Chest x-ray showed nothing acute.] Emergency Department Course and Treatment: [IV line was tablets. 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 Patient given 4 baby aspirin p.o.] Treatment Plan: [Admit for further work-up and evaluation of her chest discomfort. She is heart score was a 6.] Disposition: [Admit] Impression: [Chest pain-rule out acute coronary syndrome] This note was generated with [employer] software. It may contain incorrect words, spelling, and punctuation that were not noted in review of the chart prior to signing ED Disposition - Plan for ED Patient: Referrals: Enrique Ramos DO [Primary Care Provider] -
[2020-02-10] MEDS: 0.9% Normal Saline 1,000 ML 150 ML IV (02:54)
--- NOTE | 2020-02-10 03:13 | EKG12_ITS ---
Test Reason : DYSRHYTHMIA Blood Pressure : / mmHG Vent. Rate : 097 BPM Atrial Rate : 097 BPM P-R Int : 124 ms QRS Dur : 138 ms QT Int : 368 ms P-R-T Axes : 044 041 -02 degrees QTc Int : 467 ms Normal sinus rhythm Right bundle branch block Abnormal ECG Confirmed by ANURADHA STONE, REGGIE ([id number]), news videotape editor PAOLA JAFFE ([id number]) on 02/13/2020 1:39:18 PM Referred By: Nolberto Chew Confirmed By:REGGIE LING MD
[2020-02-10] MEDS: Losartan Potassium 100 MG Tablet PO (04:10)
[2020-02-10] MEDS: Atorvastatin Calcium 20 MG Tablet PO (04:10)
[2020-02-10] MEDS: Levothyroxine 100 MCG Tablet PO (06:31)
[2020-02-10 07:05] LABS: Bedside Glucose 122 mg/dL (70-110)
--- NOTE | 2020-02-10 11:36 | DCINST_ITS ---
- Discharge Diagnoses Current Active Problems: Current Active and Chronic Problems (Last Reviewed 02/10/20 @ 03:[address] Kishore Mason MD) Chest pain (Acute) You will use the following diet at home:: Calorie/Carbohydrate Controlled (specify 1200, 1400, etc) - 1800 agustina / day, Cardiac Your food should be the consistency of: Regular Your liquids should be the consistency of: Regular/Thin Discharge Activity: Return to Normal Activity Allergies/Adverse Reactions: Allergies No Known Allergies Allergy (Verified 02/10/20 00:32) Medications to take at Discharge Aspirin [Aspirin, Baby] 81 mg PO QHS 09/07/15 alprazolam 0.25 mg tablet 0.25 mg PO BID PRN 03/16/18 colchicine 0.6 mg tablet 0.6 mg PO DAILY PRN tab 05/04/19 metformin 500 mg tablet 500 mg PO BID #180 tab 05/04/19 exenatide microspheres 2 mg/0.85 mL subcutaneous auto-injector 2 mg SC Q7D #10.2 ml 06/01/19 levothyroxine 100 mcg tablet 100 mcg PO DAILY #90 tab 10/23/19 famotidine 40 mg tablet 40 mg PO DAILY #90 tab 11/02/19 losartan 100 mg tablet 100 mg PO QHS #90 tab 11/02/19 simvastatin 40 mg tablet 40 mg PO QHS #90 tab 11/02/19 tolterodine 4 mg capsule,extended release 24 hr 4 mg PO DAILY #30 cap 02/01/20 Primary Care Physician: Enrique Ramos DO [Primary Care Provider] - Please follow up with your Primary Care Physician in: 1-2 weeks Test Results: Test results from this visit will be discussed in further detail at your follow- up appointment, if applicable. Proposed Discharge Date: 02/10/20
--- NOTE | 2020-02-10 13:03 | STRESSREP ---
Stress Test Report Pharmacologic myocardial perfusion stress test. 70-year-old lady with a history of chest pain. Stress protocol: Resting EKG demonstrates normal sinus rhythm with a rate of 76 bpm normal intervals are noted resting blood pressure is 138/72 mmHg. Right bundle branch block is noted. 0.4 mg of regadenoson was infused per usual protocol followed by rapid intravenous saline flush injection continuous EKG monitoring was performed. The maximum heart rate attained was 112 bpm which was 73% of maximum predicted heart rate to the maximum workload was 1 metabolic equivalent. At rest there were no ST or T wave changes noted to suggest abnormal flow reserve at peak infusion nonspecific ST-T wave changes were noted. The peak blood pressure 148/60 mmHg. Myocardial perfusion protocol. 14.0 mCi of technetium 99m sestamibi was injected at rest. 0.4 mg of regadenoson was infused per usual protocol. At peak infusion 44.8 mCi of technetium 99m sestamibi was injected stress images were obtained stress and rest images were reconstructed and compared in the short axis vertical long horizontal long axis. Gated images were also obtained Perfusion SPECT analysis: Review of the stress images demonstrate normal uptake of tracer noted in all areas of the myocardium the resting images similarly demonstrate normal uptake of tracer noted in all areas of the myocardium. No areas of reversibility are noted to suggest ischemia no previous infarct is noted. Gated SPECT analysis: The gated ejection fraction is 71%. Conclusion: Normal exercise myocardial perfusion stress test. Preserved ejection fraction.
[2020-02-10] MEDS: Famotidine 20 MG Tablet 40 MG PO (13:12)
[2020-02-10] MEDS: Tolterodine Tartrate 4 MG CAP.SA PO (13:12)
[2020-02-10 13:25] LABS: Bedside Glucose 185 mg/dL (70-110)
--- NOTE | 2020-02-10 13:54 | DS.PCM_ITS ---
<Nolberto Chew - Last Filed: 02/10/20 13:54> Discharge Date and Diagnosis Date of Admission: 02/10/20 Date of Discharge: 02/10/20 - Primary Discharge Diagnosis Acute Problems: Active Problems (Last Reviewed 02/10/20 @ 03:[address] Kishore Mason MD) Palpitations PVCs - Secondary Discharge Diagnosis Chronic Problems: Chronic Problems (Last Reviewed 02/10/20 @ 03:[address] Kishore Mason MD) Stress incontinence (Chronic) History of gout (Chronic) Chronic back pain (Chronic) Arthritis (Chronic) Seasonal allergies (Chronic) Diabetes (Chronic) Neuropathy (Chronic) History of kidney stones (Chronic) GERD (gastroesophageal reflux disease) (Chronic) Hyperlipemia (Chronic) Hypertension (Chronic) Hypothyroidism (Chronic) Hospital Course and Treatment Imaging Results: 02/10/20 05:55 Nuclear Stress Test - Chemical [NM] AM (NON MEDS) Gated SPECT analysis: The gated ejection fraction is 71%. Conclusion: Normal exercise myocardial perfusion stress test. Preserved ejection fraction. RAD/Chest 1 View (Portable) IMPRESSION: No acute cardiopulmonary disease. Operations: None Procedures: Stress test Summary of Care Provided: Hospital course: The patient is a 70 year old F with past medical history as above who presented to the emergency room with complaints of palpitations described as spasms in the left side of her chest and quivering of her heart. She states she never had any chest pain. She had associated shortness of breath and nausea. She went to check her blood pressure and it was noted to be 210/161. When she came to the emergency room she had a blood pressure of 180/94. This however improved without need for IV agents. She had negative troponin, negative EKG, and negative chest x-ray. She was admitted to the PCU for chest pain rule out. She had negative troponin x3. On telemetry overnight she had occasional PVCs. Her blood pressure was controlled without additional agents added. She underwent a stress test the following day which was negative. Given the palpitations we arranged for her to have a 48-hour Holter monitor at discharge. She requested to follow-up with as he sees her . We advised her to follow-up with cardiology in 1 week for the results and to follow-up with her PCP in 1 to 2 weeks. She was discharged home in stable condition. This patient was seen by Nolberto Chew PA-C under the supervision of Doctor Weston. [] - Physical Exam Vitals/I&O's: Vital Signs Temp Pulse Resp BP Pulse Ox 97.9 F 79 18 132/70 H 99 02/10/20 13:10 02/10/20 13:10 02/10/20 13:10 02/10/20 13:10 02/10/20 13:10 Oxygen Delivery Method Room Air Weight: 268 lb 1.314 oz Body Mass Index (BMI) 44.6 Intake and Output for Last 24 Hours 02/08/20 02/09/20 02/10/20 23:59 23:59 23:59 Intake Total 490 / 490 Balance 490 / 490 General: Alert, Oriented x3, Cooperative HEENT: Atraumatic, PERRLA, EOMI, Normocephalic Neck: Supple, No JVD, Negative Carotid Bruits Lungs: Clear to auscultation, Normal air movement Cardiovascular: Regular rate, No murmurs Abdomen: Bowel Sounds Present, Soft, Non Tender Extremities: No edema, Capillary Refill Less than 3 Seconds Skin: No rashes, No breakdown Musculoskeletal: No Tenderness to Palpation of Joints or Extremities Neurological: Cranial nerves II-XII grossly intact Psych/Mental Status: Normal Affect, Appropriate, Alert and oriented to time, place, person, mood and affect Laboratory Results 02/10/20 01:02: WBC 11.1 H, RBC 4.22, Hgb 12.1, Hct 37.7, MCV 89.3, MCH 28.7, MCHC 32.1, RDW Std Deviation 47.1 H, RDW Coeff of Jenni 14.6, Plt Count 275, MPV 11.1, Immature Gran % (Auto) 0.400, Neut % (Auto) 67.4, Lymph % (Auto) 20.5, Jerome % (Auto) 8.5, Eos % (Auto) 2.8, Baso % (Auto) 0.4, Absolute Neuts (auto) 7.5, Absolute Lymphs (auto) 2.28, Nucleated RBC % 0, Differential Comment SCANNED 02/10/20 01:02: Sodium 145, Potassium 4.2, Chloride 112 H, Carbon Dioxide 25.0, Anion Gap 8, BUN 18, Creatinine 1.40 H, Estim Creat Clear Calc 34.61, Est GFR (MDRD) Af Amer 48 L, Est GFR (MDRD) Non-Af 40 L, BUN/Creatinine Ratio 12.9, Glucose 135 H, Calcium 10.1, Troponin I < 0.015 02/10/20 04:32: Troponin I < 0.015 02/10/20 06:29: POC Glucose 122 H 02/10/20 07:00: Troponin I < 0.015 02/10/20 13:17: POC Glucose 185 H Current Medications Acetaminophen (Tylenol) 650 mg PO Q6H PRN PRN PRN Reason: Pain Score 1-10/Temp > 100.7 F Alprazolam (Xanax) 0.25 mg PO BID PRN PRN PRN Reason: ANXIETY Aspirin (Aspirin, Baby) 81 mg PO QHS [facility] Atorvastatin Calcium (Lipitor) 20 mg PO QHS [facility] Last Admin: 02/10/20 04:10 Dose: 20 mg Documented by: Colchicine (Colchicine) 0.6 mg PO DAILY PRN PRN Reason: GOUT Dextrose (D50w Syringe) 0 gm IV X1 PRN; Protocol PRN Reason: Hypoglycemia Famotidine (Pepcid) 40 mg PO DAILY [facility] Last Admin: 02/10/20 13:12 Dose: 40 mg Documented by: Glucagon () 1 mg IM .X1 PRN PRN Reason: Hypoglycemia Insulin Human Lispro (Humalog Kwikpen (Bkc)) 0 unit SC Q6 [facility]; Protocol Last Admin: 02/10/20 13:20 Dose: Not Given Documented by: Levothyroxine Sodium (Synthroid) 100 mcg PO DAILY@0600 [facility] Last Admin: 02/10/20 06:31 Dose: 100 mcg Documented by: Losartan Potassium (Cozaar) 100 mg PO QHS [facility] Last Admin: 02/10/20 04:10 Dose: 100 mg Documented by: Morphine Sulfate () 2 mg IV Q3H PRN PRN PRN Reason: Pain Score 6-10/10 Ondansetron HCl (Zofran) 4 mg IV Q8H PRN PRN PRN Reason: NAUSEA/VOMITING Sodium Chloride () 10 - 40 ml IV UD PRN PRN Reason: SALINE FLUSH Tolterodine Tartrate (Detrol La) 4 mg PO DAILY [facility] Last Admin: 02/10/20 13:12 Dose: 4 mg Documented by: Discharge Diet: Low fat/ Low Cholesterol, 2000 mg Sodium Diet Discharge Activity: Return to Normal Activity Home Medications: Medications to take at Discharge Aspirin [Aspirin, Baby] 81 mg PO QHS 09/07/15 alprazolam 0.25 mg tablet 0.25 mg PO BID PRN 03/16/18 colchicine 0.6 mg tablet 0.6 mg PO DAILY PRN tab 05/04/19 metformin 500 mg tablet 500 mg PO BID #180 tab 05/04/19 exenatide microspheres 2 mg/0.85 mL subcutaneous auto-injector 2 mg SC Q7D #10.2 ml 06/01/19 levothyroxine 100 mcg tablet 100 mcg PO DAILY #90 tab 10/23/19 famotidine 40 mg tablet 40 mg PO DAILY #90 tab 11/02/19 losartan 100 mg tablet 100 mg PO QHS #90 tab 11/02/19 simvastatin 40 mg tablet 40 mg PO QHS #90 tab 11/02/19 tolterodine 4 mg capsule,extended release 24 hr 4 mg PO DAILY #30 cap 02/01/20 Other Amb Orders: Cardiac Holter Monitor, Set-Up [[facility]] Location: None Selected Primary Care Physician: Enrique Ramos DO [Primary Care Provider] - Please follow up with your Primary Care Physician in: 1-2 weeks Please Follow Up With: Constantino Randall MD When: 1 week Disposition: Home Minutes spent on discharge:: 35 Patient Condition:: Stable Medical Necessity - Tobacco Use Smoking Status: Former smoker Tobacco Use: Cigarettes Meaningful Use Info Meaningful Use Diagnoses (Choose all that apply): None applicable <[place] - Last Filed: 02/10/20 15:25> Discharge Date and Diagnosis - Secondary Discharge Diagnosis Chronic Problems: Chronic Problems (Last Reviewed 02/10/20 @ 03:[address] Kishore Mason MD) Stress incontinence (Chronic) History of gout (Chronic) Chronic back pain (Chronic) Arthritis (Chronic) Seasonal allergies (Chronic) Diabetes (Chronic) Neuropathy (Chronic) History of kidney stones (Chronic) GERD (gastroesophageal reflux disease) (Chronic) Hyperlipemia (Chronic) Hypertension (Chronic) Hypothyroidism (Chronic) Hospital Course and Treatment Summary of Care Provided: This patient was seen in conjunction with NORM Estrella. I have independently interviewed and examined the patient and reviewed pertinent historical, laboratory, and other data. Please refer to NORM Estrella note for his patient's presentation, findings, and recommendations. I have reviewed and his note and concur with his documentation 82-year-old female with past medical history of hypertension, hypothyroidism, GERD, DM type 2, complicated by neuropathy who comes in with complaints of palpitations. She denied any chest pain. This was associated with nausea and shortness of breath. KG showed no acute ST-T changes. Chest x-ray was negative. Her blood pressure was elevated. Admitted to the telemetry bed, and monitored. Her troponins were negative. Patient underwent stress test that was unremarkable. She was discharged with a 48-hour Holter monitor and will follow-up with Dr. Randall in the outpatient Physical Exam: Gen: Comfortable, obese, not pale, not jaundiced CVS:HS I +II, regular, no murmurs RESP: Clinically clear to auscultation GI: BS present and normal, soft, nontender, no palpable organs EXT:No edema - Physical Exam Vitals/I&O's: Vital Signs Temp Pulse Resp BP Pulse Ox 97.9 F 79 18 132/70 H 99 02/10/20 13:10 02/10/20 13:10 02/10/20 13:10 02/10/20 13:10 02/10/20 13:10 Oxygen Delivery Method Room Air Weight: 121.6 kg Body Mass Index (BMI) 44.6 Intake and Output for Last 24 Hours 02/08/20 02/09/20 02/10/20 23:59 23:59 23:59 Intake Total 490 / 490 Balance 490 / 490 Laboratory Results 02/10/20 01:02: WBC 11.1 H, RBC 4.22, Hgb 12.1, Hct 37.7, MCV 89.3, MCH 28.7, MCHC 32.1, RDW Std Deviation 47.1 H, RDW Coeff of Jenni 14.6, Plt Count 275, MPV 11.1, Immature Gran % (Auto) 0.400, Neut % (Auto) 67.4, Lymph % (Auto) 20.5, Jerome % (Auto) 8.5, Eos % (Auto) 2.8, Baso % (Auto) 0.4, Absolute Neuts (auto) 7.5, Absolute Lymphs (auto) 2.28, Nucleated RBC % 0, Differential Comment SCANNED 02/10/20 01:02: Sodium 145, Potassium 4.2, Chloride 112 H, Carbon Dioxide 25.0, Anion Gap 8, BUN 18, Creatinine 1.40 H, Estim Creat Clear Calc 34.61, Est GFR (MDRD) Af Amer 48 L, Est GFR (MDRD) Non-Af 40 L, BUN/Creatinine Ratio 12.9, Glucose 135 H, Calcium 10.1, Troponin I < 0.015 02/10/20 04:32: Troponin I < 0.015 02/10/20 06:29: POC Glucose 122 H 02/10/20 07:00: Troponin I < 0.015 02/10/20 13:17: POC Glucose 185 H OBSV E&M: 82907 Observation care discharge
--- NOTE | 2020-02-10 13:56 | PHA.DC.MR ---
Pharmacy Service has performed discharge medication reconciliation for this patient. The patient's discharge medication list was reviewed for discrepancies and discrepancies were resolved. Home Medications Aspirin [Aspirin, Baby] 81 mg PO QHS 09/07/15 alprazolam 0.25 mg tablet 0.25 mg PO BID PRN 03/16/18 colchicine 0.6 mg tablet 0.6 mg PO DAILY PRN tab 05/04/19 metformin 500 mg tablet 500 mg PO BID #180 tab 05/04/19 exenatide microspheres 2 mg/0.85 mL subcutaneous auto-injector 2 mg SC Q7D #10.2 ml 06/01/19 levothyroxine 100 mcg tablet 100 mcg PO DAILY #90 tab 10/23/19 famotidine 40 mg tablet 40 mg PO DAILY #90 tab 11/02/19 losartan 100 mg tablet 100 mg PO QHS #90 tab 11/02/19 simvastatin 40 mg tablet 40 mg PO QHS #90 tab 11/02/19 tolterodine 4 mg capsule,extended release 24 hr 4 mg PO DAILY #30 cap 02/01/20
--- NOTE | 2020-02-10 14:45 | NURSING ---
This RN called pt at home and instructed pt to f/u with Dr Randall in one week for results of 48 hr holter monitor. Julia NÚÑEZ
== END 2020-02-10 11:36 | disposition home or self-care (01) ==
LOC: ED 01:55 → PCU 02:27
PROVIDERS: Admitting Provider Hospitalist; Emergency Provider Emergency Medicine; PCP Family Medicine; Visit Provider Internal Medicine
DX: R07.89 Other chest pain (principal); R00.2 Palpitations; N39.3 Stress incontinence (female) (male); G89.29 Other chronic pain; M19.90 Unspecified osteoarthritis, unspecified site; E11.65 Type 2 diabetes mellitus with hyperglycemia; I16.1 Hypertensive emergency; N18.3 Chronic kidney disease, stage 3 (moderate); I45.10 Unspecified right bundle-branch block; E11.42 Type 2 diabetes mellitus with diabetic polyneuropathy; E11.22 Type 2 diabetes mellitus with diabetic chronic kidney disease; K21.9 Gastro-esophageal reflux disease without esophagitis; E78.2 Mixed hyperlipidemia; I12.9 Hypertensive chronic kidney disease with stage 1 through stage 4 chronic kidney disease, or unspecified chronic kidney disease; E03.9 Hypothyroidism, unspecified; F17.210 Nicotine dependence, cigarettes, uncomplicated; F41.9 Anxiety disorder, unspecified; E66.01 Morbid (severe) obesity due to excess calories; R55 Syncope and collapse; Z79.899 Other long term (current) drug therapy; Z79.82 Long term (current) use of aspirin; Z79.84 Long term (current) use of oral hypoglycemic drugs; Z68.42 Body mass index [BMI] 45.0-49.9, adult
CPT/HCPCS: 36415; 71045; 78452; 80048; 82962; 84484; 85025; 93005; 93017; 93225; 93226; 96360; 96361; 99218; 99285; A9500; J7030; A4216; G0378; J2785

== ENCOUNTER → 2020-02-10 13:25 | Outpatient (CLI) | payer MEDICARE, SELFPAY ==
[2020-02-10 03:16] VITALS: BMI 44.6
== END ==
PROVIDERS: PCP Family Medicine; Referring Provider Physician Assistant; Visit Provider Physician Assistant
DX: R00.2 Palpitations (principal)
CPT/HCPCS: 93225; 93226

== ENCOUNTER → 2020-03-15 10:47 | Outpatient (CLI) | payer MEDICARE, SELFPAY ==
[2020-02-29 10:18] VITALS: BMI 44.7
--- NOTE | 2020-03-15 10:48 | ECHOD_ITS ---
Reason For Study: DYSPNEA/SOB Procedure This was a 2D Doppler, Color Flow transthoracic echocardiogram. Exam performed in department. Left Ventricle Normal LV size. Left ventricular systolic function is normal. The estimated ejection fraction is 60 %. Stage 1 diastolic dysfunction. No regional wall motion abnormalities noted. Right Ventricle Normal RV size. Normal systolic function. Atria Normal left atrium. Normal right atrium. Tricuspid Valve Normal tricuspid valve. Mild (1+) tricuspid valve insufficiency. Pulmonary artery systolic pressure is 30 mmHg. Aortic Valve The aortic valve is not well visualized. Pulmonic Valve The pulmonic valve is not well visualized. Great Vessels Normal aortic root. The pulmonary artery is normal size. Normal inferior vena cava. Pericardium/Pleural No pericardial effusion. MMode/2D Measurements & Calculations LVIDd: 5.7 cm IVSd: 1.1 cm Ao root diam: 3.0 cm LVIDs: 3.8 cm LVPWd: 1.2 cm FS: 34.3 % LAV(MOD-bp): 71.5 ml LA A4 area: 22.8 cm2 LA dimension(2D): 4.3 cm LAV(MOD-bp) Indexed: 31.8 ml/m2 LAV(MOD-sp2): 69.7 ml LAV(MOD-sp4): 69.8 ml RA A4 area: 15.1 cm2 Time Measurements MV dec time: 0.19 sec Doppler Measurements & Calculations MV E max juan antonio: 62.4 cm/sec Lat Peak E' Juan Antonio: 8.9 cm/sec Med Peak E' Juan Antonio: 6.1 cm/sec MV A max juan antonio: 82.2 cm/sec E/E' lat: 7.0 E/E' med: 10.2 MV E/A: 0.76 Ao V2 max: 147.8 cm/sec LV V1 max: 125.4 cm/sec PA V2 max: 91.2 cm/sec Ao max P.7 mmHg LV V1 max P.3 mmHg TR max juan antonio: 261.3 cm/sec TR max P.3 mmHg Interpretation Summary Normal LV size. Left ventricular systolic function is normal. The estimated ejection fraction is 60 %. Stage 1 diastolic dysfunction. Mild (1+) tricuspid valve insufficiency. Pulmonary artery systolic pressure is 30 mmHg. Ordering Physician: Constantino Randall Referring Physician: Enrique Ramos Performed By: Shy Kay, JANIE, RVT
== END ==
PROVIDERS: PCP Family Medicine; Referring Provider Internal Medicine Cardiovascular Disease; Visit Provider Internal Medicine Cardiovascular Disease
DX: Z01.810 Encounter for preprocedural cardiovascular examination (principal); R00.2 Palpitations
CPT/HCPCS: 93306

== ENCOUNTER → 2020-08-14 11:09 | Outpatient (CLI) | payer MEDICARE, SELFPAY ==
[2020-08-14 10:41] VITALS: BMI 44.1
[2020-08-14 15:38] LABS: AST(SGOT) 19 U/L (15-37); Alanine Aminotransfer ALT/SGPT 28 U/L (13-56); Albumin, Serum 3.6 g/dL (3.2-5.0); Alkaline Phosphatase 106 U/L (45-117); Anion Gap 6 (5-15); BUN 23 mg/dL (7-18); Calcium,Total 10.8 mg/dL (8.5-10.1); Chloride 109 mmol/L (98-107); Cholesterol 175 mg/dL (200); Creatinine, Serum 1.21 mg/dL (0.55-1.02); EST Glomerular Filtration Rate 47 mL/min (>60); Est Glom Filt Rate - Afr Amer 57 mL/min (>60); Globulin 3.7 g/dL (2.2-4.2); Glucose 118 mg/dL (74-106); High Density Lipoprotein 38 mg/dL; Potassium 4.3 mmol/L (3.5-5.1); Protein, Total 7.3 g/dL (6.4-8.2); Sodium Level 144 mmol/L (136-145); Triglycerides 262 mg/dL; Very Low Density Lipoprotein 52 mg/dL (5-40)
== END ==
PROVIDERS: PCP Family Medicine; Referring Provider Family Medicine; Visit Provider Family Medicine
DX: E11.9 Type 2 diabetes mellitus without complications (principal); I10 Essential (primary) hypertension
CPT/HCPCS: 36415; 80053; 80061

== ENCOUNTER → 2020-08-16 11:17 | Outpatient (CLI) | payer MEDICARE, SELFPAY ==
[2020-08-14 10:41] VITALS: BMI 44.1
[2020-08-16 13:45] LABS: Microalbumin,Random Urine 14.8 mg/L (NO RANGE EST.); Microalbumin:Creatinine Ratio 15.8 mg/g CRE (<30 mg/g CRE)
== END ==
LOC: BIMLAB 11:18 → LABSPEC 11:19
PROVIDERS: PCP Family Medicine; Referring Provider Family Medicine; Visit Provider Family Medicine
DX: E11.9 Type 2 diabetes mellitus without complications (principal)
CPT/HCPCS: 82043; 82570

== ENCOUNTER → 2021-02-12 14:57 | Outpatient (CLI) | payer MEDICARE, SELFPAY ==
[2021-02-12 16:43] LABS: Hemoglobin 11.4 g/dL (12.0-15.0); Mean Corp Hgb Conc 31.7 g/dL (32-36); Mean Corpuscular Hgb 28.4 pg (27.0-32.0); Mean Corpuscular Volume 89.8 fL (81-99); Platelet Count 283 K/mm3 (150-450); RBC Distribution Width CV 14.6 % (11.6-14.6); RBC Distribution Width SD 47.8 fl (35.1-43.9); Red Blood Count 4.01 M/mm3 (4.2-5.4); White Blood Count 9.8 K/mm3 (4.4-11.0)
[2021-02-12 16:56] LABS: Anion Gap 5 (5-15); BUN 18 mg/dL (7-18); BUN/Creat Ratio 16.4 RATIO (10-20); Calcium,Total 10.4 mg/dL (8.5-10.1); Chloride 109 mmol/L (98-107); EST Glomerular Filtration Rate 52 mL/min (>60); Est Glom Filt Rate - Afr Amer 63 mL/min (>60); Glucose 175 mg/dL (74-106); Potassium 3.8 mmol/L (3.5-5.1); Sodium Level 139 mmol/L (136-145)
[2021-02-12 17:07] LABS: Hemoglobin A1c 6.7 % (3.8-5.6)
== END ==
PROVIDERS: PCP Family Medicine; Referring Provider Family Medicine; Visit Provider Family Medicine
DX: E11.9 Type 2 diabetes mellitus without complications (principal); E03.9 Hypothyroidism, unspecified
CPT/HCPCS: 36415; 80048; 83036; 85027

== ENCOUNTER 2021-08-09 10:30 | Outpatient (CLI) | payer MEDICARE, SELFPAY ==
[2021-08-09 10:31] LABS: Mucous, Urine 0 SEEN /hpf (<or=2+)
[2021-08-09 12:26] LABS: Color, Urine Yellow (Yellow); Glucose, Dipstick Normal (Normal); Ketone-Dipstick 5 mg/dl (Negative); Leukocyte Esterase-Dipstick 500 /ul (Negative); Nitrite-Dipstick Positive (Negative); Occult Blood-Urine 250 /ul (Negative); Protein-Dipstick 100 mg/dl (Negative); Urine Bilirubin Dipstick Negative (Negative); Urine Clarity Cloudy (Clear); Urine Urobilinogen Normal (Normal)
[2021-08-09 22:58] LABS: White Blood Cells >100 SEEN /hpf (0-5)
[2021-08-09 22:59] LABS: Bacteria 2+ /hpf (None Seen); Red Blood Cells-Urine > 100 SEEN /hpf (0-5); Squamous Epithelial Cells - UA 10-25 SEEN /hpf (5-10)
== END 2021-08-09 23:59 | disposition home or self-care (01) ==
LOC: LABSPEC 10:31
PROVIDERS: PCP Family Medicine; Referring Provider Physician Assistant; Visit Provider Physician Assistant
DX: R30.0 Dysuria (principal)
CPT/HCPCS: 81001; 87086; 87088; 87186

== ENCOUNTER 2021-08-14 09:57 | Outpatient (CLI) | payer MEDICARE, SELFPAY ==
[2021-08-14 10:17] LABS: Bacteria 0 SEEN /hpf (None Seen); Mucous, Urine 0 SEEN /hpf (<or=2+)
[2021-08-14 12:18] LABS: Color, Urine Yellow (Yellow); Glucose, Dipstick Normal (Normal); Ketone-Dipstick Negative (Negative); Leukocyte Esterase-Dipstick 500 /ul (Negative); Nitrite-Dipstick Negative (Negative); Occult Blood-Urine 250 /ul (Negative); Protein-Dipstick 30 mg/dl (Negative); Urine Bilirubin Dipstick Negative (Negative); Urine Clarity Sl. Cloudy (Clear); Urine Urobilinogen Normal (Normal)
[2021-08-14 12:25] LABS: D-Dimer Quantitative (DVT/PE) 0.61 FEU/ug/m (0.27-0.49)
[2021-08-14 12:41] LABS: Red Blood Cells-Urine 50-100 SEEN /hpf (0-5)
[2021-08-14 12:42] LABS: Squamous Epithelial Cells - UA 5-10 SEEN /hpf (5-10); White Blood Cells 10-25 SEEN /hpf (0-5)
[2021-08-14 12:43] LABS: Anion Gap 5 (5-15); BUN 25 mg/dL (7-18); BUN/Creat Ratio 17.9 RATIO (10-20); Calcium,Total 10.5 mg/dL (8.5-10.1); Chloride 109 mmol/L (98-107); EST Glomerular Filtration Rate 40 mL/min (>60); Est Glom Filt Rate - Afr Amer 48 mL/min (>60); Glucose 157 mg/dL (74-106); Magnesium 2.1 mg/dL (1.6-2.6); Potassium 4.5 mmol/L (3.5-5.1); Sodium Level 141 mmol/L (136-145)
[2021-08-14 16:51] LABS: Vitamin D,25 Hydroxy 16.5 ng/mL
== END 2021-08-14 23:59 | disposition home or self-care (01) ==
LOC: BIMLAB 09:57
PROVIDERS: PCP Family Medicine; Referring Provider Physician Assistant; Visit Provider Physician Assistant
DX: M79.669 Pain in unspecified lower leg (principal); E83.52 Hypercalcemia; N39.0 Urinary tract infection, site not specified
CPT/HCPCS: 36415; 80048; 81001; 82306; 83735; 85379

== ENCOUNTER 2021-08-14 14:43 | Outpatient (CLI) | payer MEDICARE, SELFPAY ==
--- NOTE | 2021-08-14 14:50 | VDLE_ITS ---
Reason For Study: Elevated D-dimer RIGHT GSV is normal. CFV is compressible, spontaneous, phasic, competent and demonstrates normal augmentation. FV is compressible, spontaneous, phasic, competent and demonstrates normal augmentation. POP V is compressible, spontaneous, phasic, competent and demonstrates normal augmentation. T/P Trunk is compressible. PTV is compressible. RT PerV is compressible. Procedure This is a venous duplex using B-mode, color flow and spectral Doppler. Exam performed in department. A preliminary report was called and/or faxed to [facility]. VL/Venous Duplex US, Unilateral Interpretation Summary There is no evidence of right lower extremity deep vein thrombosis. Right great saphenous vein appears patent and compressible segmentally. Ordering Physician: Mame Monteiro Referring Physician: Phoenix Ramos M.D. Performed By: Denae Mesa RVT
== END 2021-08-14 23:59 | disposition home or self-care (01) ==
LOC: CVS 14:43
PROVIDERS: PCP Family Medicine; Visit Provider Physician Assistant
DX: M79.661 Pain in right lower leg (principal); M79.89 Other specified soft tissue disorders; N39.0 Urinary tract infection, site not specified; E83.52 Hypercalcemia
CPT/HCPCS: 36415; 80048; 81001; 82306; 83735; 85379; 93971

== ENCOUNTER → 2021-10-02 | Outpatient (CLI) | payer MEDICARE, SELFPAY ==
[2021-10-02 15:37] LABS: Anion Gap 7 (5-15); BUN 26 mg/dL (7-18); BUN/Creat Ratio 19.7 RATIO (10-20); Calcium,Total 10.8 mg/dL (8.5-10.1); Chloride 107 mmol/L (98-107); Creatinine, Serum 1.32 mg/dL (0.55-1.02); EST Glomerular Filtration Rate 42 mL/min (>60); Est Glom Filt Rate - Afr Amer 51 mL/min (>60); Glucose 194 mg/dL (74-106); Potassium 4.6 mmol/L (3.5-5.1); Sodium Level 140 mmol/L (136-145)
== END | disposition home or self-care (01) ==
LOC: BIMLAB 13:02
PROVIDERS: PCP Family Medicine; Referring Provider Physician Assistant Medical; Visit Provider Physician Assistant Medical
DX: I10 Essential (primary) hypertension (principal); N39.0 Urinary tract infection, site not specified
CPT/HCPCS: 36415; 80048; 87077; 87086; 87088; 87186

== ENCOUNTER → 2021-11-04 | Outpatient (CLI) | payer MEDICARE, SELFPAY ==
[2021-11-04 15:51] LABS: Anion Gap 7 (5-15); BUN 20 mg/dL (7-18); BUN/Creat Ratio 14.6 RATIO (10-20); Calcium,Total 10.5 mg/dL (8.5-10.1); Chloride 106 mmol/L (98-107); Creatinine, Serum 1.37 mg/dL (0.55-1.02); EST Glomerular Filtration Rate 41 mL/min (>60); Est Glom Filt Rate - Afr Amer 49 mL/min (>60); Glucose 220 mg/dL (74-106); Potassium 4.3 mmol/L (3.5-5.1); Sodium Level 139 mmol/L (136-145)
== END | disposition home or self-care (01) ==
LOC: BIMLAB 13:35
PROVIDERS: PCP Family Medicine; Referring Provider Physician Assistant Medical; Visit Provider Physician Assistant Medical
DX: N39.0 Urinary tract infection, site not specified (principal); I10 Essential (primary) hypertension
CPT/HCPCS: 36415; 80048

== ENCOUNTER → 2022-01-06 | Outpatient (CLI) | payer MEDICARE, SELFPAY ==
--- NOTE | 2022-01-06 11:18 | NEURO ---
NCS and/or EMG Patient Report Ordering Doctor: Enrique Ramos DATE OF SERVICE: 01/06/22 Indication: Wrist pain with intermittent numbness and tingling of both hands. Evaluate for entrapment neuropathy. Findings: Nerve conduction studies were performed in the right and left upper extremities. The right median motor study recording the abductor pollicis brevis showed a normal amplitude, prolonged distal latency and normal conduction velocity. The right ulnar motor study recording the abductor digiti minimi showed a normal amplitude, normal distal latency and normal conduction velocity. The across the elbow segment could not be adequately assessed due to submaximal stimulation (positioning, habitus). The right median sensory response recording digit two showed a normal amplitude, prolonged latency and slowed conduction velocity. The right ulnar sensory response recording digit five showed a normal amplitude, latency and conduction velocity. The right radial sensory response recording over the extensor snuff box showed a normal amplitude, latency and conduction velocity. The left median motor study recording the abductor pollicis brevis showed a normal amplitude, prolonged distal latency and normal conduction velocity. The left ulnar motor study recording the abductor digiti minimi showed a normal amplitude, normal distal latency and normal conduction velocity. The across the elbow segment could not be adequately assessed due to submaximal stimulation. The left median sensory response recording digit two showed a slightly reduced amplitude, prolonged latency and slowed conduction velocity. The left ulnar sensory response recording digit five showed a normal amplitude, latency and conduction velocity. The left radial sensory response recording over the extensor snuff box showed a normal amplitude, latency and conduction velocity. Needle EMG of the left upper extremity muscles was performed. No denervation was seen in any muscle. The left abductor pollicis brevis revealed normal motor unit morphology, but a slightly reduced recruitment pattern. All other motor unit morphology, activation and recruitment patterns were normal. Needle EMG of the right abductor pollicis brevis muscle was performed. No denervation was seen. Motor units were large amplitude, long duration with reduced recruitment. Impression: This is an abnormal study. There is electrophysiologic evidence of median neuropathy across the wrist on both sides (moderate on the right, moderate on the left). The pathophysiology is predominantly demyelinating. These findings are compatible with the clinical diagnosis of carpal tunnel syndrome. In addition, there was no evidence of a superimposed cervical radiculopathy in the left upper extremity. Christopher Northrop, D.O. Multi Select Codes Neurology Neurology Interp Codes: 92944-80 [facility] [place]nerv tst nathan (interp) (59), [id number] Musc test done w/n test comp (interp) and [id number] Nrv cndj test 9-10 studies (interp)
== END | disposition home or self-care (01) ==
LOC: PSN 09:39
PROVIDERS: PCP Family Medicine; Referring Provider Family Medicine; Visit Provider Family Medicine
DX: G56.03 Carpal tunnel syndrome, bilateral upper limbs (principal)
CPT/HCPCS: 95885; 95886; 95911

== ENCOUNTER → 2022-02-17 | Outpatient (CLI) | payer MEDICARE, SELFPAY ==
[2022-02-17 16:48] LABS: Calcium,Total 10.3 mg/dL (8.5-10.1)
[2022-02-17 16:57] LABS: Vitamin D,25 Hydroxy 35.6 ng/mL
== END | disposition home or self-care (01) ==
LOC: BIMLAB 14:34
PROVIDERS: PCP Family Medicine; Visit Provider Family Medicine
DX: E83.52 Hypercalcemia (principal)
CPT/HCPCS: 36415; 82306; 82310

== ENCOUNTER → 2022-03-24 | Outpatient (CLI) | payer MEDICARE, SELFPAY ==
[2022-03-24 12:43] LABS: Absolute Lymphocyte Count 1.96 X10^3/uL (0.83-4.51); Absolute Neutrophil Count 6.7 X10^3/uL (2.0-7.7); Basophil# 0.05 X10^3/uL; Basophil% 0.5 % (0-1); Eosinophil# 0.37 X10^3/uL; Eosinophils% 3.8 % (0-5); Hemoglobin 11.9 g/dL (12.0-15.0); Lymphocyte # 1.96 X10^3/ul (0.83-4.51); Lymphocyte % 20.1 % (19-41); Mean Corp Hgb Conc 32.2 g/dL (32-36); Mean Corpuscular Hgb 28.7 pg (27.0-32.0); Mean Corpuscular Volume 89.4 fL (81-99); Mean Platelet Vol. 11.2 fl (6.2-12.0); Monocyte# 0.62 X10^3/uL; Monocyte% 6.4 % (0-10); NRBC Flagged by Analyzer 0 % (0-5); Neutrophil # 6.69 X10^3/uL (2.7-7.7); Neutrophil % 68.8 % (47-70); Platelet Count 337 K/mm3 (150-450); RBC Distribution Width CV 14.9 % (11.6-14.6); Red Blood Count 4.14 M/mm3 (4.2-5.4); White Blood Count 9.7 K/mm3 (4.4-11.0)
[2022-03-24 12:52] LABS: ALB/GLOB Ratio 0.8 RATIO (0.9-2.4); AST(SGOT) 15 U/L (15-37); Alanine Aminotransfer ALT/SGPT 24 U/L (13-56); Albumin, Serum 3.3 g/dL (3.2-5.0); Alkaline Phosphatase 99 U/L (45-117); Anion Gap 7 (5-15); BUN 23 mg/dL (7-18); BUN/Creat Ratio 17.4 RATIO (10-20); Calcium,Total 10.8 mg/dL (8.5-10.1); Chloride 109 mmol/L (98-107); Creatinine, Serum 1.32 mg/dL (0.55-1.02); EST Glomerular Filtration Rate 42 mL/min (>60); Est Glom Filt Rate - Afr Amer 51 mL/min (>60); Globulin 4.2 g/dL (2.2-4.2); Glucose 155 mg/dL (74-106); Potassium 4.4 mmol/L (3.5-5.1); Protein, Total 7.5 g/dL (6.4-8.2); Sodium Level 141 mmol/L (136-145)
== END | disposition home or self-care (01) ==
LOC: BIMLAB 09:29
PROVIDERS: PCP Family Medicine; Referring Provider Physician Assistant; Visit Provider Physician Assistant
DX: Z01.818 Encounter for other preprocedural examination (principal)
CPT/HCPCS: 36415; 80053; 85025

== ENCOUNTER 2022-04-02 08:08 | Day surgery (SDC) | payer MEDICARE, SELFPAY ==
[2022-04-02] MEDS: Lactated Ringers 1,000 ML 15 ML IV (08:30)
[2022-04-02 08:54] VITALS: BP 137/72; PULSE 80; RESP 17; TEMP 36.8; O2SAT 94; BMI 44.7
[2022-04-02 09:21] LABS: Bedside Glucose 152 mg/dL (74-106)
--- NOTE | 2022-04-02 10:27 | HP.PCM_ITS ---
HPI - General HPI Narrative ANIBAL SAEZ, is a 72 F who presents for left carpal tunnel release. Consent updated. No further concern or questions. H and P no changes, wishes to proceed. Left wrist marked. MR#: [id number] Acct: [id number] Name:ANIBAL LE Rep #: [id number] : 1950 ? ? Provider: Dr. Jasvir Mcwilliams MD Age/Sex:? 72/F ? ? Location: [facility] [place] Status: Signed Intake Vital Signs ? 02/27/2213:14 Height 5 ft 5 in Weight: 271 lb BMI 45.1 Intake Visit Reasons:?LEFT HAND Chief Complaint: left hand numbness and tingling Is patient in pain?: No Allergies hydrochlorothiazide Adverse Reaction (Verified 02/27/22 13:15) elevated calcium Medications aspirin 81 mg chewable tablet 81 mg PO QHS heart health 09/07/15 [History Confirmed 02/27/22] alprazolam 0.25 mg tablet 0.25 mg PO BID PRN Anxiety 03/16/18 [History Confirmed 02/27/22] colchicine 0.6 mg tablet (Colcrys) 0.6 mg PO DAILY PRN gout 05/04/19 [History Confirmed 02/27/22] exenatide microspheres 2 mg/0.85 mL subcutaneous auto-injector (Bydureon BCise) 2 mg (0.85 mL) subcut Q7D #10.2 mL 10/29/20 [Rx Confirmed 02/27/22] amlodipine 5 mg tablet 5 mg PO DAILY #90 tabs 03/05/21 [Rx Confirmed 02/27/22] cholecalciferol (vitamin D3) 50 mcg (2,000 unit) capsule 50 mcg PO DAILY #90 caps 08/16/21 [Rx Confirmed 02/27/22] famotidine 40 mg tablet (Pepcid) 40 mg PO DAILY #90 tabs 11/12/21 [Rx Confirmed 02/27/22] levothyroxine 100 mcg tablet 100 mcg PO DAILY #90 tabs 11/12/21 [Rx Confirmed 02/27/22] losartan 100 mg tablet 100 mg PO QHS #90 tabs 01/03/22 [Rx Confirmed 02/27/22] metformin 500 mg tablet 500 mg PO BID #180 tabs 01/03/22 [Rx Confirmed 02/27/22] carvedilol 3.125 mg tablet (Coreg) 3.125 mg PO BID #180 tabs 01/14/22 [Rx Confirmed 02/27/22] spironolactone 25 mg tablet 25 mg PO DAILY #90 tabs 01/14/22 [Rx Confirmed 02/27/22] simvastatin 40 mg tablet 40 mg PO QHS #90 tabs 02/13/22 [Rx Confirmed 02/27/22] PFSH Medical History?(Updated 02/27/22 @ 13:16 by Jasvir Mcwilliams MD) Arthritis Bilateral carpal tunnel syndrome Bleeding hemorrhoid Chest pain Chronic back pain Essential (primary) hypertension GERD (gastroesophageal reflux disease) Goiter History of gout History of kidney stones Hyperlipemia Hypothyroidism Neuropathy Obesity Right bundle branch block (RBBB) Seasonal allergies Stress incontinence Type 2 diabetes mellitus Surgical History? History of bilateral breast reduction surgery History of hip replacement History of hysterectomy History of orthopedic surgery History of partial thyroidectomy History of tonsillectomy Family History? Father AlcoholismMother Arthritis Osteoporosis Hypertension Social History? Smoking Status:? Former smoker Tobacco: How many years used:? 30 how long ago did patient quit smoking:? 2002 alcohol intake:? current alcohol intake frequency: holidays/special occasions only substance use type:? does not use what type of physical activity do you participate in:? none HPI LEFT HAND Details: Parts of this documentation were recorded by a scribe, this documentation accurately reflects the service provided and the decisions made by me, Dr. Jasvir Mcwilliams MD 02/27/22 [id number]. ANIBAL SAEZ is a 72 year old F here today for only on the left numbness and tingling like hitting the funny bone nerve. Couple years history getting worse, RHD. Work - 2002 - was working with [employer]. Retired - company closed. Weakness - not really. Clumsy - trouble picking things up. Pinky - yes. No neck or elbow radiating numbness. Thumb is the worse for tingling, and index middle worse.? Comes from the radial side of the wrist. Pain - no. TX -No injections. Had one on the right side night time - wearing every night for a month - no help. Did not have a left sided brace, but did try it. NSAIDs - no doesn't do anything -? all the time - for the back. Non insulin dependent. A1c - last week 6.9. Ortho Exam General General: Yes no acute distress Neurologic: Yes alert and Yes oriented x3 Psychologic: Yes reasonable and appropriate Right Wrist/Hand Skin/Wound: No Swelling and No Ecchymosis Left Wrist/Hand Skin/Wound: Yes CDI, No Swelling, No Ecchymosis, Yes nail intact, Yes capillary refill normal and No erythema Left Wrist: Yes ROM-Extension 0-60, Yes ROM-Flexion 0-80, Yes ROM-Pronation 0- 80, Yes ROM-Supination 0-90, Yes Tinel's and Yes Phalen's; No Lashawn's Test, No Palpable Nodule, No CMC Grind, No tender to palpate 1st dorsal compartment, No tender to palpate carpometacarpal joint, No Thenar Atrophy and No Hypothenar Atrophy Motor: EPL: 5, FDP-2: 5, 1st Dorsal Interosseous: 5 and APB: 5 Sensation: Radial: D, Ulnar: I and Median: I WRIST: Negative Tinel's sign and compression test at the elbow. Supplemental Info Neurology assessment from 01/07/2020 II nerve conduction studies from Dr. Ramos.? 6 indication wrist pain with intermittent numbness and tingling of both hands.? Evaluate for entrapment neuropathy.? The actual latencies are not recorded howev er the impression is abnormal study.? Electrophysiologic evidence of median neuropathy across the wrist on both sides.? Moderate on the right moderate on the left.? The pathophysiology is predominantly demyelinating.? These findings are compatible with a clinical diagnosis of carpal tunnel syndrome.? In addition, there is no evidence of a superimposed cervical radiculopathy in the left upper extremity. Coding Level of Care Code Off vis,new,level 4 Diagnoses Bilateral carpal tunnel syndrome? G56.03 Time Spent (min) 45 Assessment and Plan Assessment and Plan (1) Bilateral carpal tunnel syndrome: ?Status:?Acute ?Plan: 22-year-old female with bilateral carpal tunnel syndrome on nerve conduction studies however she is mostly concerned about the left side.? She does state that she has mostly numbness into the thumb index and middle finger somewhat into the fifth digit although there is no signs of ulnar nerve compression either on clinical exam or through nerve conduction studies I think this is primarily a problem of median neuropathy at the wrist.? We talked about different treatment options doing nothing as well as the pros and cons risks and benefits of watchful waiting worsening or permanent nerve damage or weakness or atrophy of the hand as well as night splinting anti-inflammatories injections and endoscopic or open carpal tunnel release.? She would like to go ahead with the ECTR.? We discussed the recovery associate with surgery 2 weeks for the incision to heal then gradual resumption of normal activities after that. Pros and cons risks and benefits were discussed with the patient including but not limited to infection, pain, stiffness, bleeding, damage to surrounding structures, neurovascular injury, recurrence or retear, failure or wear of hardware or fixation, instability, fracture, deep vein thrombosis and pulmonary embolism, anesthetic risks, patient dissatisfaction, need for further surgery and other risks.? Patient understood and wished to proceed with surgery, and sig nomi the informed consent documentation.? I did let her know that she would have an increased risk (of infection, nerve damage and other problems) due to her diabetes hemoglobin A1c up to 7 over the past 6 to 12 months and I will get a preoperative clearance from her family doctor as well. [facility] Medical History Alcohol use Arthritis Bilateral carpal tunnel syndrome Bladder disease Bleeding hemorrhoid Cardiology follow-up encounter Chest pain Chronic back pain Diabetes Dietary restriction Essential (primary) hypertension Former smoker Gastric reflux GERD (gastroesophageal reflux disease) Goiter History of echocardiogram History of edema History of gout History of irregular heartbeat History of kidney stones History of pain when walking History of stress test Hyperlipemia Hypertension Hypothyroidism Loss of hearing Neuropathy Obesity Right bundle branch block (RBBB) Seasonal allergies Stress incontinence Syncope Thyroid disease Type 2 diabetes mellitus Wears glasses Home Medications aspirin 81 mg chewable tablet 81 mg PO QHS heart health 09/07/15 [History Last Taken Unknown] alprazolam 0.25 mg tablet 0.25 mg PO BID PRN Anxiety 03/16/18 [History Last Taken Unknown] colchicine 0.6 mg tablet (Colcrys) 0.6 mg PO DAILY PRN gout 05/04/19 [History Last Taken Unknown] cholecalciferol (vitamin D3) 50 mcg (2,000 unit) capsule 50 mcg PO DAILY #90 caps 08/16/21 [Rx Last Taken Unknown] famotidine 40 mg tablet (Pepcid) 40 mg PO DAILY #90 tabs 11/12/21 [Rx Last Taken Unknown] levothyroxine 100 mcg tablet 100 mcg PO DAILY #90 tabs 11/12/21 [Rx Last Taken Unknown] losartan 100 mg tablet 100 mg PO QHS #90 tabs 01/03/22 [Rx Last Taken Unknown] metformin 500 mg tablet 500 mg PO BID #180 tabs 01/03/22 [Rx Last Taken Unknown] carvedilol 3.125 mg tablet (Coreg) 3.125 mg PO BID #180 tabs 01/14/22 [Rx Last Taken Unknown] spironolactone 25 mg tablet 25 mg PO DAILY #90 tabs 01/14/22 [Rx Last Taken Unknown] simvastatin 40 mg tablet 40 mg PO QHS #90 tabs 02/13/22 [Rx Last Taken Unknown] amlodipine 5 mg tablet 5 mg PO DAILY #90 tabs 03/04/22 [Rx Last Taken Unknown] exenatide microspheres 2 mg/0.85 mL subcutaneous auto-injector (By[place]ate[place]se) 2 mg subcut FIGUEROA 03/26/22 [History Last Taken Unknown] Allergy/AdvReac Type Severity Reaction Status Date / Time hydrochlorothiazide AdvReac elevated Verified 03/26/22 10:57 calcium Family History Father Alcoholism Mother Arthritis Osteoporosis Hypertension Surgical History History of bilateral breast reduction surgery History of hip replacement History of hysterectomy History of orthopedic surgery History of partial thyroidectomy History of tonsillectomy Social History Smoking Status: Former smoker Tobacco: How many years used: 30 how long ago did patient quit smokin alcohol intake: current alcohol intake frequency: holidays/special occasions only substance use type: does not use what type of physical activity do you participate in: none Vital Signs Vital Signs Vital Signs: 04/02/22 08:54 04/02/22 08:54 Temperature 98.2 F Temperature Source Temporal Pulse Rate 80 Respiratory Rate 17 Respiratory Pattern Normal Blood Pressure 137/72 H Blood Pressure Mean 93 Blood Pressure Source Monitor Blood Pressure Position Semi-Fowlers Blood Pressure Location Left Arm Pulse Ox 94 Oxygen Delivery Method Room Air Weight Weight: 268 lb 15.423 oz Body Mass Index (BMI) 44.7 Results Lab / Micro Data Labs: Laboratory Results - last 24 hr 04/02/22 08:59: POC Glucose 152 H
--- NOTE | 2022-04-02 10:57 | PCM.OPRPT ---
Problems Associated Problem List Diagnoses (1) Carpal tunnel syndrome of left wrist: Report of Operation Date of Procedure: 04/02/22 Pre-Operative Diagnosis: left CTS Post-Operative Diagnosis: same Surgery/Procedure Performed:: left endoscopic carpal tunnel release Surgeon: Jasvir Mcwilliams Type of Anesthesia: Local Anesthesiologist: Sivakumar Nova Estimated Blood Loss (mL): 5 Description of Procedure: Patient was brought to the operating room theater.? The patient was administered 3 g of IV Ancef prior to the start of the procedure.? Placed supine on the operating room table.? General anesthesia induced. ? SCDs on the legs.? Tourniquet applied to the operative extremity, appropriately padded. Arm table used. Operative extremity prepped and draped in the usual sterile fashion with chlorhexidine-based prep solution allowing over 3 minutes drying time prior to draping.? Preoperative timeout performed to confirm the site patient and the surgery. I began by using eschmar to exsanguinate, elevating the limb and inflating the tourniquet to 250 mmHg. Used the Arthex center line endoscopic carpal tunnel kit / technique.? I made a transverse 1 cm incision in line with the proximal transverse wrist crease.? This was in line with the fourth digit.? I carried the dissection down through skin and subcutaneous tissue achieved meticulous hemostasis. Just ulnar to palmaris tendon.? I incised the antebrachial fascia.? I passed sequential dilators into the carpal tunnel along the radial border of the Guyon's canal aiming for the fourth digit with the hand in extension.? I used a synovial elevator to identify the transverse fibers of the transverse carpal tunnel ligament.? Once I had identified the full proximal and distal extent of the ligament I fully released the ligament under direct visualization by deploying the blade and slowly withdrawing the scope made sequential passes until I no longer felt tension as well as the entire extent of the ligament was released under direct visualization.? Arthroscope light was more visible through the skin. Pictures taken and saved. Wound thoroughly irrigated.? Tourniquet let down prior to end of the case and meticulous hemostasis achieved.? Thorough irrigation.? Placed 3 cc of quarter percent Marcaine and the skin incision site.? Incision closed with 3-0 Monocryl.? Steri-Strips were applied after the skin was cleaned and dried. Xeroform gauze and Freddy wrap was then applied.? Patient woken up from general anesthetic transferred off the operating room table and taken to postanesthetic care unit in stable condition. All sponge needle instrument counts were correct no complications.? Plan for the patient to be discharged home according to day surgery criteria when they are comfortable. Follow-up in the office in 2 days time. Complications none Admit VTE Documentation VTE Present on Admission: No VTE Mechan Device Prophylaxis: SCD's Reason prophylaxis not ordered:: Treatment Not Indicated Procedures Musculoskeletal [id number]-29xxx: 88274 WRIST ENDOSCOPY/SURGERY
[2022-04-02] MEDS: Bupivacaine 0.25% 30 ML Vial (11:25)
--- NOTE | 2022-04-02 11:57 | DCINST_ITS ---
Discharge Instructions Diet Discharge Diet: No restrictions Activity Additional Activity Instructions:: fingers wrist and elbow ROM as tolerated, no heavy lifting or gripping Dressing / Incision Call your doctor if your incision/area has: Continuous Slow Oozing, Sudden Increased Bleeding, Increased Pain/ Swelling, Increased Redness, Foul Smelling Discharge and Swelling at the incision site Change Dressing in: leave in place till F/U Follow Up Care Please Follow Up With: Jasvir Mcwilliams MD When: 2 days Test Results: Test results from this visit will be discussed in further detail at your follow- up appointment, if applicable. Discharge Plan Admission Attending Provider: Jasvir Mcwilliams Primary Care Provider: Enrique Ramos Discharge Orders/Prescriptions Prescriptions: No Action alprazolam 0.25 mg tablet 0.25 mg PO BID PRN (Reason: Anxiety) colchicine [Colcrys] 0.6 mg tablet 0.6 mg PO DAILY PRN (Reason: gout) carvedilol [Coreg] 3.125 mg tablet 3.125 mg PO BID Qty: 180 0RF Rx Instructions: must administer with a meal/food spironolactone 25 mg tablet 25 mg PO DAILY Qty: 90 3RF aspirin 81 MG tablet,chewable 81 mg PO QHS Bydureon BCise 2 mg/0.85 mL auto-injector 2 mg SC FIGUEROA cholecalciferol (vitamin D3) 50 mcg (2,000 unit) capsule 50 mcg PO DAILY Qty: 90 3RF famotidine [Pepcid] 40 mg tablet 40 mg PO DAILY Qty: 90 3RF levothyroxine 100 mcg tablet 100 mcg PO DAILY Qty: 90 3RF losartan 100 mg tablet 100 mg PO QHS Qty: 90 1RF metformin 500 mg tablet 500 mg PO BID Qty: 180 3RF simvastatin 40 mg tablet 40 mg PO QHS Qty: 90 3RF amlodipine 5 mg tablet 5 mg PO DAILY Qty: 90 3RF Referrals / Follow Up: Enrique Ramos DO [Primary Care Provider] - Jasvir Mcwilliams MD [Med Staff - Active Staff] - Disposition Disposition (needs filled in before D/C Order can be placed): Home, Self Care
[2022-04-02 12:00] VITALS: BP 131/67; BP 137/72; PULSE 68; RESP 16; TEMP 36.2; O2SAT 92
[2022-04-02 12:15] VITALS: BP 127/113; BP 137/72; PULSE 66; RESP 14; O2SAT 95
[2022-04-02 12:30] VITALS: BP 116/58; BP 137/72; PULSE 65; RESP 14; O2SAT 95
[2022-04-02 12:34] VITALS: BP 116/58; BP 137/72; PULSE 62; RESP 14; TEMP 35.9; O2SAT 93
[2022-04-02 13:26] VITALS: BP 120/68; BP 137/72; PULSE 60; RESP 14; O2SAT 94
== END 2022-04-02 13:43 | disposition home or self-care (01) ==
LOC: SDC 08:08 → AC 08:09
PROVIDERS: PCP Family Medicine; Referring Provider Orthopaedic Surgery Sports Medicine; Visit Provider Orthopaedic Surgery Sports Medicine
PROC: (CPT 29848; principal; 2022-04-02 09:45)
DX: G56.03 Carpal tunnel syndrome, bilateral upper limbs (principal); E11.40 Type 2 diabetes mellitus with diabetic neuropathy, unspecified; I10 Essential (primary) hypertension; E78.5 Hyperlipidemia, unspecified; E03.9 Hypothyroidism, unspecified; Z79.82 Long term (current) use of aspirin; Z79.899 Other long term (current) drug therapy; Z79.84 Long term (current) use of oral hypoglycemic drugs; Z87.891 Personal history of nicotine dependence
CPT/HCPCS: 29848; 01810; 82962; J7120; J2405

== ENCOUNTER → 2022-08-26 | Outpatient (CLI) | payer MEDICARE, SELFPAY ==
[2022-08-26 17:11] LABS: ALB/GLOB Ratio 0.8 RATIO (0.9-2.4); AST(SGOT) 9 U/L (15-37); Alanine Aminotransfer ALT/SGPT 15 U/L (13-56); Albumin, Serum 3.2 g/dL (3.2-5.0); Alkaline Phosphatase 104 U/L (45-117); Anion Gap 8 (5-15); BUN 32 mg/dL (7-18); BUN/Creat Ratio 16.5 RATIO (10-20); Chloride 111 mmol/L (98-107); Creatinine, Serum 1.94 mg/dL (0.55-1.02); EST Glomerular Filtration Rate 27 mL/min (>60); Est Glom Filt Rate - Afr Amer 33 mL/min (>60); Globulin 4.2 g/dL (2.2-4.2); Glucose 184 mg/dL (74-106); Potassium 4.4 mmol/L (3.5-5.1); Protein, Total 7.4 g/dL (6.4-8.2); Sodium Level 140 mmol/L (136-145); T4 Free Direct 1.19 ng/dL (0.76-1.46); Thyroid Stim Hormone (TSH) 1.41 uIU/mL (0.358-3.74)
== END | disposition home or self-care (01) ==
LOC: BIMLAB 14:28
PROVIDERS: PCP Family Medicine; Referring Provider Family Medicine; Visit Provider Family Medicine
DX: E83.52 Hypercalcemia (principal); E03.9 Hypothyroidism, unspecified
CPT/HCPCS: 36415; 80053; 84439; 84443

== ENCOUNTER → 2022-09-17 | Outpatient (CLI) | payer MEDICARE, SELFPAY ==
[2022-09-17 10:23] LABS: Mucous, Urine 0 SEEN /hpf (<or=2+); Red Blood Cells-Urine 0 SEEN /hpf (0-5)
[2022-09-17 13:04] LABS: Color, Urine Yellow (Yellow); Glucose, Dipstick Normal (Normal); Ketone-Dipstick Negative (Negative); Leukocyte Esterase-Dipstick 500 /ul (Negative); Nitrite-Dipstick Positive (Negative); Occult Blood-Urine 10 /ul (Negative); Protein-Dipstick 15 mg/dl (Negative); Specific Gravity, Urine 1.015 (1.002-1.030); Urine Bilirubin Dipstick Negative (Negative); Urine Clarity Sl. Cloudy (Clear); Urine Urobilinogen Normal (Normal)
[2022-09-17 14:30] LABS: Bacteria 2+ /hpf (None Seen); Squamous Epithelial Cells - UA 0-5 SEEN /hpf (5-10); White Blood Cells 25-50 SEEN /hpf (0-5)
== END | disposition home or self-care (01) ==
LOC: LABSPEC 10:21
PROVIDERS: PCP Family Medicine; Visit Provider Nurse Practitioner Family
DX: N39.0 Urinary tract infection, site not specified (principal)
CPT/HCPCS: 81001

== ENCOUNTER → 2022-10-21 | Outpatient (CLI) | payer MEDICARE, SELFPAY ==
[2022-10-21 12:44] LABS: Color, Urine Yellow (Yellow); Glucose, Dipstick Normal (Normal); Ketone-Dipstick Negative (Negative); Leukocyte Esterase-Dipstick 500 /ul (Negative); Nitrite-Dipstick Positive (Negative); Occult Blood-Urine 50 /ul (Negative); Protein-Dipstick 30 mg/dl (Negative); Urine Bilirubin Dipstick Negative (Negative); Urine Clarity Cloudy (Clear); Urine Urobilinogen Normal (Normal)
[2022-10-21 12:54] LABS: Red Blood Cells-Urine 0-5 SEEN /hpf (0-5); Squamous Epithelial Cells - UA 5-10 SEEN /hpf (5-10); White Blood Cells >100 SEEN /hpf (0-5)
[2022-10-21 12:55] LABS: Bacteria 4+ /hpf (None Seen); Mucous, Urine RARE /hpf (<or=2+)
[2022-10-21 13:12] LABS: Creatinine, Serum 1.81 mg/dL (0.55-1.02); EST Glomerular Filtration Rate 29 mL/min (>60); Est Glom Filt Rate - Afr Amer 36 mL/min (>60)
== END | disposition home or self-care (01) ==
LOC: BIMLAB 10:11
PROVIDERS: PCP Family Medicine; Referring Provider Family Medicine; Visit Provider Family Medicine
DX: N18.9 Chronic kidney disease, unspecified (principal)
CPT/HCPCS: 36415; 81001; 82565

== ENCOUNTER → 2022-10-23 | Outpatient (CLI) | payer MEDICARE, SELFPAY | END | disposition home or self-care (01) | LOC: LABSPEC 13:31 | PROVIDERS: PCP Family Medicine; Visit Provider Family Medicine | DX: N39.0 Urinary tract infection, site not specified (principal) | CPT/HCPCS: 87077; 87086; 87088 ==

== ENCOUNTER → 2022-11-11 | Outpatient (CLI) | payer MEDICARE, SELFPAY | END | disposition home or self-care (01) | LOC: LABSPEC 11:22 | PROVIDERS: PCP Family Medicine; Referring Provider Family Medicine; Visit Provider Family Medicine | DX: R30.0 Dysuria (principal) | CPT/HCPCS: 87086; 87088; 87186 ==

== ENCOUNTER → 2022-12-02 | Outpatient (CLI) | payer MEDICARE, SELFPAY ==
[2022-12-02 16:01] LABS: Bacteria 0 SEEN /hpf (None Seen); Mucous, Urine 0 SEEN /hpf (<or=2+); Red Blood Cells-Urine 0 SEEN /hpf (0-5); Squamous Epithelial Cells - UA 0 SEEN /hpf (5-10)
[2022-12-02 16:36] LABS: Color, Urine Yellow (Yellow); Glucose, Dipstick Normal (Normal); Ketone-Dipstick Negative (Negative); Leukocyte Esterase-Dipstick 500 /ul (Negative); Nitrite-Dipstick Positive (Negative); Occult Blood-Urine 150 /ul (Negative); Protein-Dipstick 30 mg/dl (Negative); Urine Bilirubin Dipstick Negative (Negative); Urine Clarity Cloudy (Clear); Urine Urobilinogen Normal (Normal)
[2022-12-02 16:45] LABS: White Blood Cells >100 SEEN /hpf (0-5)
== END | disposition home or self-care (01) ==
LOC: LABSPEC 16:00
PROVIDERS: PCP Family Medicine; Visit Provider Family Medicine
DX: N39.0 Urinary tract infection, site not specified (principal)
CPT/HCPCS: 81001; 87086; 87088; 87186

== ENCOUNTER → 2022-12-08 | Outpatient (CLI) | payer MEDICARE, SELFPAY ==
--- NOTE | 2022-12-08 11:20 | US_ITS ---
EXAM: US RETROPERITONEAL LIMITED, RENAL CLINICAL INDICATION: urinary retension -- chronic uti TECHNIQUE: Limited grayscale and color Doppler sonographic evaluation of the retroperitoneum was performed. COMPARISON: No relevant prior studies available. FINDINGS: BLADDER: Prevoid the bladder measures 7.4 x 4.0 x 8.0 cm for volume of 122 mL. The bladder wall measured 7 mm. Post void the bladder measures 3.1 x 3.0 0.6 cm from post void volume of 18 mL. There is minimal debris within the bladder. US/Post Void Residual Bladder IMPRESSION: Small residual postvoid volume of 18 mL. There is minimal debris within the bladder. Electronically Signed: Delvin Oakes MD at 16:47 EDT ,
== END | disposition home or self-care (01) ==
PROVIDERS: PCP Family Medicine; Referring Provider Family Medicine; Visit Provider Family Medicine
DX: N39.3 Stress incontinence (female) (male) (principal); N39.0 Urinary tract infection, site not specified
CPT/HCPCS: 51798

== ENCOUNTER → 2023-03-03 | Outpatient (CLI) | payer MEDICARE, SELFPAY ==
[2023-03-03 13:37] LABS: Mucous, Urine 0 SEEN /hpf (<or=2+)
[2023-03-03 15:36] LABS: Color, Urine Yellow (Yellow); Glucose, Dipstick Normal (Normal); Ketone-Dipstick Negative (Negative); Leukocyte Esterase-Dipstick 500 /ul (Negative); Nitrite-Dipstick Positive (Negative); Occult Blood-Urine 25 /ul (Negative); Protein-Dipstick 30 mg/dl (Negative); Specific Gravity, Urine 1.015 (1.002-1.030); Urine Bilirubin Dipstick Negative (Negative); Urine Clarity Cloudy (Clear); Urine Urobilinogen Normal (Normal)
[2023-03-03 16:11] LABS: Bacteria 2+ /hpf (None Seen); Red Blood Cells-Urine 0-5 SEEN /hpf (0-5); White Blood Cells >100 SEEN /hpf (0-5)
[2023-03-03 16:12] LABS: Squamous Epithelial Cells - UA 0-5 SEEN /hpf (5-10)
== END | disposition home or self-care (01) ==
LOC: BIMLAB 13:36
PROVIDERS: PCP Family Medicine; Visit Provider Family Medicine
DX: N39.0 Urinary tract infection, site not specified (principal)
CPT/HCPCS: 81001

== ENCOUNTER → 2023-03-26 | Outpatient (CLI) | payer MEDICARE, SELFPAY ==
[2023-03-26 14:26] LABS: Mucous, Urine 0 SEEN /hpf (<or=2+)
[2023-03-26 15:14] LABS: Color, Urine Yellow (Yellow); Glucose, Dipstick 100 mg/dl (Normal); Ketone-Dipstick 5 mg/dl (Negative); Leukocyte Esterase-Dipstick 500 /ul (Negative); Nitrite-Dipstick Positive (Negative); Occult Blood-Urine 25 /ul (Negative); Protein-Dipstick 30 mg/dl (Negative); Urine Bilirubin Dipstick Negative (Negative); Urine Clarity Cloudy (Clear); Urine Urobilinogen Normal (Normal)
[2023-03-26 15:37] LABS: Bacteria 1+ /hpf (None Seen); Squamous Epithelial Cells - UA 0-5 SEEN /hpf (5-10); White Blood Cells >100 SEEN /hpf (0-5)
[2023-03-26 15:38] LABS: Red Blood Cells-Urine 0-5 SEEN /hpf (0-5)
== END | disposition home or self-care (01) ==
LOC: LABSPEC 14:04
PROVIDERS: PCP Family Medicine; Visit Provider Family Medicine
DX: N39.0 Urinary tract infection, site not specified (principal)
CPT/HCPCS: 81001; 87077; 87086; 87088; 87186

== ENCOUNTER → 2023-05-11 | Outpatient (CLI) | payer MEDICARE, SELFPAY ==
[2023-05-11 14:31] LABS: Mucous, Urine 0 SEEN /hpf (<or=2+)
[2023-05-11 15:18] LABS: Color, Urine Yellow (Yellow); Glucose, Dipstick Normal (Normal); Ketone-Dipstick 5 mg/dl (Negative); Leukocyte Esterase-Dipstick 500 /ul (Negative); Nitrite-Dipstick Positive (Negative); Occult Blood-Urine 150 /ul (Negative); Protein-Dipstick 100 mg/dl (Negative); Urine Bilirubin Dipstick 1 mg/dL (Negative); Urine Clarity Cloudy (Clear); Urine Urobilinogen Normal (Normal)
[2023-05-11 15:26] LABS: Bacteria 2+ /hpf (None Seen); Red Blood Cells-Urine 10-25 SEEN /hpf (0-5); Squamous Epithelial Cells - UA 0-5 SEEN /hpf (5-10); White Blood Cells 25-50 SEEN /hpf (0-5)
== END | disposition home or self-care (01) ==
LOC: LABSPEC 14:29
PROVIDERS: PCP Family Medicine; Referring Provider Family Medicine; Visit Provider Family Medicine
DX: N39.0 Urinary tract infection, site not specified (principal)
CPT/HCPCS: 81001; 87077; 87086; 87088; 87186

== ENCOUNTER → 2023-09-01 | Outpatient (CLI) | payer MEDICARE, SELFPAY ==
[2023-09-01 10:50] LABS: Red Blood Cells-Urine 0 SEEN /hpf (0-5)
[2023-09-01 12:45] LABS: Color, Urine Yellow (Yellow); Glucose, Dipstick Normal (Normal); Ketone-Dipstick Negative (Negative); Leukocyte Esterase-Dipstick 500 /ul (Negative); Nitrite-Dipstick Positive (Negative); Occult Blood-Urine 10 /ul (Negative); Protein-Dipstick 30 mg/dl (Negative); Urine Bilirubin Dipstick Negative (Negative); Urine Clarity Cloudy (Clear); Urine Urobilinogen Normal (Normal)
[2023-09-01 12:51] LABS: Basophil# 0.03 X10^3/uL; Basophil% 0.4 % (0-1); Eosinophil# 0.22 X10^3/uL; Eosinophils% 2.8 % (0-5); Hematocrit 33.7 % (37-47); Hemoglobin 10.4 g/dL (12.0-15.0); Lymphocyte % 10.3 % (19-41); Mean Corp Hgb Conc 30.9 g/dL (32-36); Mean Corpuscular Hgb 28.2 pg (27.0-32.0); Mean Corpuscular Volume 91.3 fL (81-99); Mean Platelet Vol. 11.1 fl (6.2-12.0); Monocyte# 0.72 X10^3/uL; Monocyte% 9.3 % (0-10); NRBC Flagged by Analyzer 0 % (0-5); Neutrophil # 5.95 X10^3/uL (2.7-7.7); Neutrophil % 76.7 % (47-70); Platelet Count 277 K/mm3 (150-450); RBC Distribution Width SD 53.8 fl (35.1-43.9); Red Blood Count 3.69 M/mm3 (4.2-5.4); White Blood Count 7.8 K/mm3 (4.4-11.0)
[2023-09-01 12:55] LABS: Bacteria 4+ /hpf (None Seen); Mucous, Urine 1+ /hpf (<or=2+); Squamous Epithelial Cells - UA 5-10 SEEN /hpf (5-10); White Blood Cells >100 SEEN /hpf (0-5)
[2023-09-01 13:31] LABS: Microalbumin:Creatinine Ratio 68.7 mg/g CRE (<30 mg/g CRE)
[2023-09-01 14:48] LABS: ALB/GLOB Ratio 0.8 RATIO (0.9-2.4); AST(SGOT) 21 U/L (15-37); Alanine Aminotransfer ALT/SGPT 22 U/L (13-56); Albumin, Serum 3.2 g/dL (3.2-5.0); Alkaline Phosphatase 114 U/L (45-117); Anion Gap 7 (5-15); BUN 25 mg/dL (7-18); BUN/Creat Ratio 14.9 RATIO (10-20); Calcium,Total 9.6 mg/dL (8.5-10.1); Chloride 115 mmol/L (98-107); Creatinine, Serum 1.68 mg/dL (0.55-1.02); EST Glomerular Filtration Rate 32 mL/min (>60); Est Glom Filt Rate - Afr Amer 39 mL/min (>60); Glucose 155 mg/dL (74-106); Potassium 4.4 mmol/L (3.5-5.1); Protein, Total 7.2 g/dL (6.4-8.2); Sodium Level 142 mmol/L (136-145); T4 Free Direct 1.11 ng/dL (0.76-1.46); Thyroid Stim Hormone (TSH) 1.12 uIU/mL (0.358-3.74); Uric Acid 8.6 mg/dL (2.6-6.0)
== END | disposition home or self-care (01) ==
LOC: BIMLAB 10:49
PROVIDERS: PCP Family Medicine; Visit Provider Family Medicine
DX: M10.9 Gout, unspecified (principal); E11.9 Type 2 diabetes mellitus without complications; E03.9 Hypothyroidism, unspecified
CPT/HCPCS: 36415; 80053; 81001; 82043; 82570; 84439; 84443; 84550; 85025

== ENCOUNTER → 2024-03-01 | Outpatient (CLI) | payer MEDICARE, SELFPAY ==
[2024-03-01 15:23] LABS: Color, Urine Yellow (Yellow); Glucose, Dipstick 250 mg/dl (Normal); Ketone-Dipstick Negative (Negative); Leukocyte Esterase-Dipstick 100 /ul (Negative); Nitrite-Dipstick Negative (Negative); Occult Blood-Urine 10 /ul (Negative); Protein-Dipstick 30 mg/dl (Negative); Specific Gravity, Urine 1.015 (1.002-1.030); Urine Bilirubin Dipstick Negative (Negative); Urine Clarity Cloudy (Clear); Urine Urobilinogen Normal (Normal)
[2024-03-01 15:36] LABS: Bacteria 2+ /hpf (None Seen); Red Blood Cells-Urine 0-5 SEEN /hpf (0-5); White Blood Cells 50-100 SEEN /hpf (0-5)
[2024-03-01 15:38] LABS: Mucous, Urine 1+ /hpf (<or=2+); Squamous Epithelial Cells - UA 5-10 SEEN /hpf (5-10)
[2024-03-01 15:48] LABS: Microalbumin,Random Urine 83.9 mg/L (NO RANGE EST.); Microalbumin:Creatinine Ratio 131.1 mg/g CRE (<30 mg/g CRE)
== END | disposition home or self-care (01) ==
LOC: BIMLAB 13:58
PROVIDERS: PCP Family Medicine; Referring Provider Family Medicine; Visit Provider Family Medicine
DX: E11.9 Type 2 diabetes mellitus without complications (principal); N39.0 Urinary tract infection, site not specified
CPT/HCPCS: 81001; 82043; 82570

== ENCOUNTER → 2025-03-02 | Outpatient (CLI) | payer MEDICARE, SELFPAY ==
[2025-03-02 19:36] LABS: AST(SGOT) 17 U/L (<=31); Alanine Aminotransfer ALT/SGPT 8 U/L (<=34); Albumin, Serum 3.8 g/dL (3.4-4.8); Alkaline Phosphatase 111 U/L (35-104); Anion Gap 11 (5-15); BUN 27 mg/dL (4-19); BUN/Creat Ratio 14.6 RATIO (10-20); Calcium,Total 10.2 mg/dL (7.6-11.0); Carbon Dioxide 21.3 mmol/L (21.0-32.0); Chloride 110 mmol/L (98-108); Cholesterol 142 mg/dL (<=200); Globulin 3.4 g/dL (2.2-4.2); Glucose 169 mg/dL (70-99); Low Density Lipoprotein Calc. 60 mg/dL; Potassium 5.1 mmol/L (3.3-5.1); Triglycerides 260 mg/dL; Very Low Density Lipoprotein 52 mg/dL (5-40); cholesterol:hdl ratio screen 4.80
[2025-03-02 19:50] LABS: Creatinine, Urine (random) 103.00 mg/dL (28.00-217.00); Microalbumin,Random Urine 26.1 mg/L (<20 mg/L)
== END | disposition home or self-care (01) ==
PROVIDERS: PCP Family Medicine; Referring Provider Family Medicine; Visit Provider Family Medicine
DX: E11.9 Type 2 diabetes mellitus without complications (principal); E78.5 Hyperlipidemia, unspecified; I10 Essential (primary) hypertension
CPT/HCPCS: 36415; 80053; 80061; 82043; 82570